=== PATIENT | female | born 1955 | race Caucasian/White ===

== ENCOUNTER 2020-04-23 07:13 | Day surgery (SDC) | payer OTHER ==
--- OUTSIDE RECORDS SUMMARY | 2020-04-23 07:21 | XMS REPORT | Clinical Summary ---
:1955 Author Organization [facility] Address [address] [place] [address] Care Team Providers Name Role Phone Chloe Snow MD Primary Care Provider Allergies Active Allergy Reactions Severity Noted Date Comments Hydroxychloroquine Itching 03/26/2020 Data migr ated from [facility] o n 12/18/14. Origina lly documented as PLAQUENIL. Data migrated f rom [employer] o n 12/18/14. Origina lly documented as PLAQUENIL. Sulfa (Sulfonamide Itching, Other 07/19/2018 Itching and pain Antibiotics) (See Comments) all over body Medications Medication Sig Dispensed Refills Start End Date Status Date cycloSPORINE Administer 1 0 Acti ve (RESTASIS) 0.05 % drop to both ophthalmic emulsion eyes 2 (two) times a day. calcium Take 1 tablet 0 Active carbonate-vitamin by mouth D3 500 mg-200 unit daily. per tablet ergocalciferol TAKE 1 CAPSULE 4 capsule 0 Active (VITAMIN D2) 50,000 BY MOUTH ONE 0 unit capsule TIME PER WEEK folic acid Take 1 mg by 0 Active (FOLVITE) 1 MG mouth 2 (two) tablet times a day. inFLIXimab in 6 mg/kg every 1 each 12 Ac tive sodium chloride 6 weeks 0 0.9% 250 mL IVPB cholecalciferol, Take 2,000 0 07/10/20 Di scontinued vitamin D3, Units by mouth 19 (Do se (VITAMIN D3) 2,000 daily. a djustment) unit capsule capsule inFLIXimab in Infuse into a 0 01/16/20 Di scontinued sodium chloride venous 20 (Reo rder) 0.9% 250 mL IVPB catheter Every 2 months. DOXYCYCLINE CALCIUM Take 20 mg by 0 Discontinued ORAL mouth 2 (two) 20 (Dupli rukhsana times a day. order) folic acid Take 2 tablets 180 tablet 3 09/24/19 Exp ired (FOLVITE) 1 MG (2 mg total) 9 20 tablet by mouth daily. leflunomide (ARAVA) Take 1 tablet 30 tablet 0 Discontinued 20 MG tablet (20 mg total) 05 08 (Re order) by mouth daily. amoxicillin TAKE ONE 0 07/11/20 Disconti nued (AMOXIL) 500 MG CAPSULE BY 05 08 (Di scontinued by capsule MOUTH 3 TIMES anothe r A DAY FOR 7 clinicia n) DAYS leflunomide (ARAVA) TAKE 1 TABLET 30 tablet 1 Discontinued 20 MG tablet BY MOUTH EVERY 9 (R eorder) DAY traMADol (ULTRAM) Take 50 mg by 0 08/22/19 Discontinued 50 mg tablet mouth 2 (two) 9 20 (Me d List times a day as Clean up) needed. leflunomide (ARAVA) TAKE 1 TABLET 90 tablet 0 Discontinued 20 MG tablet BY MOUTH EVERY 9 20 (R eorder) DAY ergocalciferol Take 1 capsule 8 capsule 0 09/08/19 Discontinued (VITAMIN D2) 50,000 (50,000 Units 9 20 unit capsule total) by mouth once a week. doxycycline Take 20 mg by 0 12/25/19 Disc ontinued (PERIOSTAT) 20 MG mouth 2 (two) 9 20 (Therapy tablet times a day. complet ed) leflunomide (ARAVA) Take 1 tablet 90 tablet 1 Discontinued 20 MG tablet (20 mg total) 0 20 by mouth daily. leflunomide (ARAVA) 0 02/05/20 Discontinued 20 MG tablet 0 20 (Duplic ate order) leflunomide (ARAVA) TAKE 1 TABLET 90 tablet 1 Discontinued 20 MG tablet BY MOUTH EVERY 0 20 (S daljit effects) DAY Active Problems Problem Noted Date Long-term use of high-risk medication 01/16/2018 High risk medications (not anticoagulants) long-term u se 03/10/2016 Vitamin D deficiency 03/10/2016 Osteoporosis 03/10/2016 Rheumatoid arthritis 03/01/2016 Overview: Dx 1989 Arthritis Visual impairment Muscle weakness Encounters Date Type Specialty Care Team Description 04/15/2020 Telemedicine Rheumatology JenifferaAprilifa, Rheumatoid a rthritis involving multiple sites with positive rheumatoid factor (HCC) (Primary Dx); DO Long-term use o f high-risk medication; Medication maricruz toring encounter; Other osteoporo sis without current pathological fracture; Cough; Weight loss 04/15/2020 Travel 04/13/2020 Refill Rheumatology Tye Hill, DO 03/26/2020 Infusion Rheumatology Fakshaynea, Latifa, Rheumatoid a rthritis DO involving multi ple sites with positive r heumatoid factor (HCC) (P rimary Dx) 03/26/2020 Travel 03/25/2020 Travel 03/24/2020 Orders Only Rheumatology Jeniffera, Latifa, DO 02/05/2020 Infusion Rheumatology Fakshaynea, Latifa, Rheumatoid a rthritis DO involving multi ple sites with positive r heumatoid factor (HCC) (P rimary Dx) 02/05/2020 Travel 02/05/2020 Orders Only Pharmacy Tye Hill, DO 02/03/2020 Travel 01/16/2020 Office Visit Rheumatology Jeniffera Latifa, Rheumatoid a rthritis involving multiple sites with positive rheumatoid factor (HCC) (Primary Dx); DO Long-term use o f high-risk medication; Medication maricruz toring encounter; Other osteoporo sis without current pathological fracture 01/16/2020 Travel 12/31/2019 Travel 12/29/2019 Hospital Encounter Radiology Tye Hill Long-t erm use of high- risk medication; DO Positive Quanti FERON-TB Gold test 12/29/2019 Travel 12/25/2019 Infusion Rheumatology Fakshaynea, Latifa, Rheumatoid a rthritis DO involving multi ple sites with positive r heumatoid factor (HCC) (P rimary Dx) 12/25/2019 Telephone Rheumatology Corinna Lopez MA 12/25/2019 Orders Only Rheumatology Corinna Lopez MA Rheumatoid a rthritis involving multiple sites with positive rheumatoid factor (HCC) (Primary Dx); Long-term use o f high-risk medication 12/25/2019 Orders Only Rheumatology FakApril pearceifa, Long-term us e of high-risk medication (Primary Dx); DO Positive Quanti FERON-TB Gold test 12/25/2019 Travel 12/25/2019 Orders Only Pharmacy Fakoya, Latifa, DO 12/24/2019 Orders Only Rheumatology Fakshaynea, Latifa, DO 12/24/2019 Orders Only Rheumatology Pereira, Rheumatoid arth ritis involving multiple sites with positive rheumatoid factor (HCC) (Primary Dx); IKER Adan Long-term use o f high-risk medication; Seropositive rh eumatoid arthritis of multiple sites (HCC) 11/14/2019 Infusion Rheumatology Fakoya, Latifa, Rheumatoid a rthritis DO involving multi ple sites with positive r heumatoid factor (HCC) (P rimary Dx) 11/14/2019 Travel 11/11/2019 Orders Only Rheumatology Fakoya, Latifa, DO 10/09/2019 Office Visit Rheumatology Fakoya, Latifa, Rheumatoid a rthritis involving multiple sites with positive rheumatoid factor (HCC) (Primary Dx); DO Long-term use o f high-risk medication; Medication maricruz toring encounter; Essential hyper tension; Other osteoporo sis without current pathological fracture 10/07/2019 Refill Rheumatology Fakoya, Latifa, DO 10/03/2019 Infusion Rheumatology Fakoya, Latifa, Rheumatoid a rthritis DO involving multi ple sites with positive r heumatoid factor (HCC) (P rimary Dx) 09/07/2019 Refill Rheumatology Fakoya, Latifa, DO 08/22/2019 Infusion Rheumatology Fakoya, Latifa, Rheumatoid a rthritis DO involving multi ple sites with positive r heumatoid factor (HCC) (P rimary Dx) 08/19/2019 Orders Only Rheumatology Fakoya, Latifa, DO 07/11/2019 Infusion Rheumatology Fakoya, Latifa, Rheumatoid a rthritis DO involving multi ple sites with positive r heumatoid factor (HCC) (P rimary Dx) 07/11/2019 Orders Only Rheumatology Fakoya, Latifa, DO 07/11/2019 Orders Only Rheumatology Fakshaynea, Latifa, DO 07/10/2019 Orders Only Rheumatology Fakshaynea, Latifa, DO 07/09/2019 Office Visit Rheumatology Fakshaynea Latifa, Rheumatoid a rthritis involving multiple sites with positive rheumatoid factor (HCC) (Primary Dx); DO Essential hyper tension; Other osteoporo sis without current pathological fracture; Long-term use o f high-risk medication; Medication maricruz toring encounter 07/09/2019 Refill Rheumatology Fakoya, Latifa, DO 05/30/2019 Infusion Rheumatology Fakshaynea, Latifa, Rheumatoid a rthritis DO involving multi ple sites with positive r heumatoid factor (HCC) (P rimary Dx) 05/30/2019 Orders Only Rheumatology Fakshaynea, Latifa, DO 05/06/2019 Refill Rheumatology FakshayneaAprilifa, DO after 04/23/2019 Immunizations Name Administration Dates Next Due PPD Test 05/09/2015 Family History Medical History Relation Name Comments Cancer Brother Hyperlipidemia Brother Hypertension Brother Relation Name Status Comments Brother Father (Age 71) heart attack Mother 40s car accident Social History Tobacco Use Types Packs/Day Years Used Date Never Smoker Smokeless Tobacco: Never Used Alcohol Use Drinks/Week oz/Week Comments No not found Sex Assigned at Date Recorded Not on file Job Start Date Occupation Industry Not on file Not on file Not on file Travel History Travel Start Travel End No recent travel history available. COVID-19 Exposure Response Date Recorded In the last month, have you been in contact with No / Unsure 04/15/2020 12:41 PM CDT someone who was confirmed or suspected to have Coronavirus / COVID-19? Last Filed Vital Signs Vital Sign Reading Time Taken Comments Blood Pressure 96/53 03/26/2020 12:04 PM CDT Pulse 90 03/26/2020 12:04 PM CDT Temperature 36.1 C (96.9 F) 03/26/2020 12:04 PM CDT Respiratory Rate 16 03/26/2020 12:04 PM CDT Oxygen Saturation 95% 03/26/2020 12:04 PM CDT Inhaled Oxygen Concentration - - Weight 44.9 kg (99 lb) 03/26/2020 9:30 AM CDT Height 147.3 cm (4' 10") 03/26/2020 9:30 AM CDT Body Mass Index 20.69 03/26/2020 9:30 AM CDT Plan of Treatment Date Type Specialty Care Team Description 05/07/2020 Infusion [place] Tye Hill DO [id number] [place] [address] [place] [address] [phone] 05/24/2020 [place] [address] [phone] Health Maintenance Due Date Last Done Comments CERVICAL CANCER SCREENING 1975 BREAST CANCER SCREENING 2004 COLONOSCOPY SCREENING 2004 SHINGLES VACCINES (#1) 2004 65+ PNEUMOCOCCAL VACCINE (2 of 2 - PPSV23) 10/01/201909/21 INFLUENZA VACCINE 05/20/2020 Procedures Procedure Name Priority Date/Time Associated Diagnosis Comme nts XR CHEST 2 VW Routine 12/29/2019 11:38 Long-term use of Result s for this AM CDT high-risk medica tion procedure are in Positive the results QuantiFERON-TB Gold section. test QUANTIFERON-TB GOLD Routine 12/25/2019 1:47 Resu lts for this PLUS PM CDT procedure are i n the results section. QUANTIFERON-TB GOLD Routine 12/25/2019 1:47 Rheumatoid arth ritis Results for this PLUS PM CDT involving multiple procedure are in sites with positive the resu lts rheumatoid factor section. (HCC) Long-term use of high-risk medica tion Seropositive rheumatoid arthritis of multiple sites (HCC) HEPATITIS B SURFACE Routine 12/25/2019 1:41 Long-term use of Results for this ANTIGEN PM CDT high-risk medication procedu re are in the results section. HEPATITIS B SURFACE Routine 12/25/2019 1:41 Long-term use of Results for this ANTIBODY PM CDT high-risk medication procedu re are in the results section. HEPATITIS C ANTIBODY Routine 12/25/2019 1:41 Long-term use of Results for this PM CDT high-risk medication procedu re are in the results section. HEPATITIS B CORE Routine 12/25/2019 1:41 Long-term use of Res ults for this ANTIBODY TOTAL PM CDT high-risk medication proce dure are in the results section. 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 ([facility]) SEDIMENTATION RATE Routine 10/09/2019 2:58 Rheumatoid arthrit is Results for this PM COMMUNICATIONS TOWER CLIMBER involving multiple procedure are in sites with positive the resu lts rheumatoid factor section. ([facility]) COMPREHENSIVE Routine 10/09/2019 2:58 Rheumatoid arthritis Re sults for this METABOLIC PANEL PM [employer]OWER [employer]IM[employer] involving multiple proced ure are in sites with positive the resu lts rheumatoid factor section. ([facility]) Medication monitoring encounter CBC WITH PLATELET AND Routine 10/09/2019 2:58 Rheumatoid arth ritis Results for this DIFFERENTIAL PM COMM[employer]ICATION[employer] TOWER [employer]IMBER involving multiple procedure are in sites with positive the resu lts rheumatoid factor section. (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 ([facility]) SEDIMENTATION RATE Routine 07/09/2019 2:41 Rheumatoid arthrit is Results for this PM COMMUNICATIONS TOWER CLIMBER involving multiple procedure are in sites with positive the resu lts rheumatoid factor section. ([facility]) COMPREHENSIVE Routine 07/09/2019 2:41 Rheumatoid arthritis Re sults for this METABOLIC PANEL PM [employer]S TOWER [employer]IMBER involving multiple proced ure are in sites with positive the resu lts rheumatoid factor section. ([facility]) CBC WITH PLATELET AND Routine 07/09/2019 2:41 Rheumatoid arth ritis Results for this DIFFERENTIAL PM COMM[employer]ICATIONS TOWER [employer]IMBER involving multiple procedure are in sites with positive the resu lts rheumatoid factor section. ([facility]) VITAMIN D 25 HYDROXY Routine 07/09/2019 2:41 Rheumatoid arthr itis Results for this LEVEL PM [employer]ICATION[employer] TOWER [employer]IMBER involving multiple procedure are in sites with positive the resu lts rheumatoid factor section. ([facility]) Other osteoporosis without current pathological fracture after 04/23/2019 Results XR Chest 2 Vw (12/29/2019 11:38 AM CDT) Specimen Narrative Performed At XR CHEST 2 VW [facility] CLINICAL INDICATION: Z79.899 Other longterm (curren t) drug therapy, R76.12 Nonspecific reaction to cell mediated immunity measurement of gamma interferon antigen response without active tuber culosis, Positive TB-screening COMPARISON: 03/07/2019 IMPRESSION: Heart and mediastinal contours are within normal limit s and without change. The lungs are stable with mild chronic interstitial ch anges and mild hyperexpansion, question COPD. There is no developing consolidation or effusion. There are no radiographic findings for a ctive tuberculosis. Bones are demineralized with mild degenerative changes through the spine with advanced arthrosis of the shoulders. Osteolysis o f the distal clavicles is present which may relate to systemic dise ase such as from hyperparathyroidism or rheumatoid arthritis. *[facility]-[id number] Procedure Note Hm Interface, Radiology Results Incoming - 12/29/2019 11:44 AM CDT XR CHEST 2 VW CLINICAL INDICATION: Z79.899 Other manager terminal (current) drug therapy, R76.12 Nonspecific reaction to cell mediated immunity measurement of gamma interferon antigen response without active tuberculosis, Positive TB-screening COMPARISON: 03/07/2019 IMPRESSION: Heart and mediastinal contours are withi n normal limits and without change. The lungs are stable with mild chronic i nterstitial changes and mild hyperexpansion, question COPD. There is no developing consolidation or effusion. There are no radiographic findings for a ctive tuberculosis. Bones are demineralized with mild degene rative changes through the spine with advanced arthrosis of the shoulders. Osteolysis of the distal clavicles is present which may relate to systemic disease such as from hyperparathyroidism or rheumatoid arthritis. *[facility]-[id number] Performing Organization Address City/State/Zipcode Phone Number [place] [phone] [place] [address] QuantiFERON-TB Gold Plus (12/25/2019 1:47 PM CDT) Quantiferon criteria Comment [facility] 02 Comment: The QuantiFERON-TB Gold Plus result is determined by s ubtracting the Nil value from either TB antigen (Ag) tube. The mi togen tube serves as a control for the test. QuantiFERON TB1 Ag >10.00 IU/mL [facility] 02 Value QuantiFERON TB2 Ag >10.00 IU/mL [facility] 02 Value Quantiferon NIL value 6.09 IU/mL [facility] 02 Quantiferon mitogen >10.00 IU/mL [facility] 02 value Specimen Narrative Performed At Performed at: 02 - [facility] [place] [facility] [address] [id number] Lining Maker: Joe Plaza MD, Phone: [phone] Performing Organization Address [facility] Phone Number [facility] 02 QuantiFERON-TB Gold Plus (12/25/2019 1:47 PM CDT) Pathologist Sig nature QuantiFERON Incubation [facility] Incubation performed. Quantiferon TB gold Positive (A) Negative [facility] 02 plus Specimen Narrative Performed At Performed at: [facility] [address] [place] [address] [id number] Lining Maker: Jonn Bernardo MD, Phone: [phone] Performed at: [facility] [place] [address] [id number] Lining Maker: Joe Plaza MD, Phone: [phone] Performing Organization Address [facility] Phone Number [facility] 02 Hepatitis C antibody (12/25/2019 1:41 PM CDT) Hepatitis C Ab 0.1 0.0 - 0.9 s/co [facility] Comment: ratio Neg ative: < 0.8 Indetermina te: 0.8 - 0.9 Pos itive: > 0.9 The CDC recommends that a positive HCV antibody resul t be followed up with a HCV Nucleic Acid Amplification test (176880). Specimen Blood Narrative Performed At Performed at: [facility] [address] [place] [address] [id number] Lining Maker: Jonn Bernardo MD, Phone: [phone] Performing Organization Address [facility] Phone Number [facility] Hepatitis B core antibody total (12/25/2019 1:41 PM CDT) Pathologist Sig replaced by [facility] Hepatitis B core total Ab Negative Negative [facility] Specimen Blood Narrative Performed At Performed at: [facility] [address] [place] [address] [id number] Lining Maker: Jonn Bernardo MD, Phone: [phone] Performing Organization Address [facility] Phone Number [facility] Hepatitis B surface antibody (12/25/2019 1:41 PM CDT) Pathologist Sig nature Hepatitis B surface Non Reactive [facility] Ab Comment: Non Reactive: Inconsistent with i mmunity, less than 10 mIU/mL Reactive: Consistent with i mmunity, greater than 9.9 mIU/mL Specimen Blood Narrative Performed At Performed at: [address] [place] [address] [facility] [address] [place] [address] [id number] Lining Maker: Jonn Bernardo MD, Phone: [phone] Performing Organization Address [facility] Phone Number [facility] Hepatitis B surface antigen (12/25/2019 1:41 PM CDT) Pathologist [facility] Hepatitis B surface Ag Negative Negative [facility] Specimen Blood Narrative Performed At [facility]formed [facility]: [facility] [address] [place] [address] [id number] [phone] Lining Maker: Jonn Bernardo MD, Phone: [phone] Performing Organization Address [facility] Phone Number [facility] Sedimentation rate (10/09/2019 2:58 PM COMMUNICATIONS TOWER CLIMBER)Only the most recent of2 results within the time period is included. Pathologist Sig replaced by [facility] Sedimentation rate 17 0 - 40 mm/hr [facility] Specimen Blood Narrative Performed At Performed at: [facility] [address] [place] [address] [id number] [phone] Lining Maker: Jonn Bernardo MD, Phone: [phone] Performing Organization Address [facility] Phone Number [facility] CBC with platelet and differential (10/09/2019 2:58 PM COMMUNICATIONS TOWER CLIMBER)Only the most recent of2 resultswithin the time period is included. Pathologist Sig replaced by [facility] WBC 4.5 3.4 - 10.8 x10E3/uL [facility] RBC 4.10 3.77 - 5.28 [facility] x10E6/uL HGB 11.6 11.1 - 15.9 g/dL [facility] HCT 38.0 34.0 - 46.6 % [facility] MCV 93 79 - 97 fL [facility] MCH 28.3 26.6 - 33.0 pg [facility] MCHC 30.5 (L) 31.5 - 35.7 g/dL [facility] RDW 14.9 11.7 - 15.4 % [facility] Platelet count 200 150 - 450 x10E3/uL [facility] Neutrophils 48 Not Estab. % [facility] Lymphocytes 35 Not Estab. % [facility] Monocytes 10 Not Estab. % [facility] Eosinophils 6 Not Estab. % [facility] Basophils 1 Not Estab. % [facility] Neutrophils, absolute 2.1 1.4 - 7.0 x10E3/uL [facility] Lymphocytes, absolute 1.6 0.7 - 3.1 x10E3/uL [facility] Monocytes, absolute 0.5 0.1 - 0.9 x10E3/uL [facility] Eosinophils, absolute 0.3 0.0 - 0.4 x10E3/uL [facility] Basophils, absolute 0.1 0.0 - 0.2 x10E3/uL [facility] Immature granulocytes 0 Not Estab. % [facility] Immature grans (abs) 0.0 0.0 - 0.1 x10E3/uL [facility] Specimen Blood Narrative Performed At Performed at: [address] [place] [address] [id number] Lining Maker: Jonn Bernardo MD, Phone: [phone] Performing Organization Address [facility] Phone Number [facility] C-reactive protein (10/09/2019 2:58 PM COMMUNICATIONS TOWER CLIMBER)Only the most recent of2 results within the time period is included. Pathologist Sig nature CRP 1 0 - 10 mg/L [facility] Specimen Blood Narrative Performed At Performed at: [address] [place] [address] [id number] [phone] Lining Maker: Jonn Bernardo MD, Phone: [phone] Performing Organization Address [facility] Phone Number [facility] Comprehensive metabolic panel (10/09/2019 2:58 PM COMMUNICATIONS TOWER CLIMBER)Only the most recent of2 resultswithin the time period is included. Glucose 91 65 - 99 mg/dL [facility] BUN 6 (L) 8 - 27 mg/dL [facility] Creatinine 0.40 (L) 0.57 - 1.00 [facility] mg/dL EGFR Non-Afr. 110 >59 [facility] Gambian mL/min/1.73 EGFR 126 >59 [facility] Gambian mL/min/1.73 BUN/creatinine ratio 15 12 - 28 [facility] Sodium 142 134 - 144 [facility] mmol/L Potassium 3.6 3.5 - 5.2 [facility] mmol/L Chloride 102 96 - 106 [facility] mmol/L CO2 22 20 - 29 mmol/L [facility] Calcium 8.9 8.7 - 10.3 [facility] mg/dL Protein 7.8 6.0 - 8.5 g/dL [facility] Albumin, S 4.5Comment: 3.8 - 4.8 g/dL [facility] Please note reference interval change Globulin, total 3.3 1.5 - 4.5 g/dL [facility] Albumin/globulin 1.4 1.2 - 2.2 [facility] ratio Total bilirubin 0.3 0.0 - 1.2 [facility] mg/dL Alkaline phosphatase 121 (H) 39 - 117 IU/L [facility] AST 33 0 - 40 IU/L [facility] ALT 35 (H) 0 - 32 IU/L [facility] Specimen Blood Narrative Performed At Performed at: 01 - [facility] [place] [facility] [address] [place], [place] [id number] [phone] Lining Maker: Jonn Bernardo MD, Phone: [phone] Performing Organization Address City/[facility] Phone Number [facility] Vitamin D 25 hydroxy level (07/09/2019 2:41 PM COMMUNICATIONS TOWER CLIMBER) Vitamin D, 13.2 (L) 30.0 - 100.0 [facility] 25-hydroxy Comment: ng/mL Vitamin D deficiency has been defined by the [place] of Medicine and an Endocrine Society practice guideline a s a level of serum 25-OH vitamin D less than 20 ng/mL (1,2 ). The Endocrine Society went on to further define vitami n D insufficiency as a level between 21 and 29 ng/mL (2). 1. IOM ([place] of Medicine). 2010. Dietary referenc e intakes for calcium and D. [place]: The National Academies Press. 2. Alcon MF, Florinda NC, Phong-Wicho PENALOZA, et al. Evaluation, treatment, and prevention of vitamin D deficiency: an Endocrine Society clinical practice guideline. JCEM. 2010; 96(7):1911-30. 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
--- OUTSIDE RECORDS SUMMARY | 2020-04-23 07:23 | XMS REPORT | Summary of Care ---
:1955 Author Organization [facility] Address [address] [place] [phone]- Care Team Providers Name Role Phone Eduardo Sauer Primary Care Physician Encounter HQ Jose(YULISA) [phone] Date(s): 03/11/20 - 03/12/20 [facility] [address] [place] [address]- [phone] Vital Signs No data available for this section Problem List Condition Effective Dates Status Health Status Informant Acute maxillary sinusitis1, 2 07/20/14 Resolved Allergic rhinitis3 03/19/15 Resolved Cough4 11/23/14 Resolved Dry skin5 03/19/12 Resolved Dyssomnia6 04/09/12 Resolved Elevated levels of transaminase & 01/08/13 Active lactic acid dehydrogenase7 Hip pain8 03/19/12 Resolved Influenza9 Resolved Influenza dldbmfbpaic14 Resolved Joint effusion of ankle AND/OR 08/06/14 Resolved foot11 Long-term drug [id number] 08/07/12 Resolved Lung mass13, 14 11/26/14 Resolved Neck pain15 06/05/14 Active RA (rheumatoid arthritis)(Confirmed) Active Tinea pedis16, 17 11/05/13 Resolved Upper respiratory pysiillrz51, 19, 12/15/13 Resolved 20, 21 1Data migrated from [employer] on 03/06/15.2Data migrated from [employer] on 03/05/15.3Data migrated from [employer] on 04/10/15.4Data migrated from [employer] on 02/24/15.5Data migrated from [employer] on 01/16/15.6Data migrated from [employer] on 01/16/15.7Data migrated from [employer] on 01/16/15.8Data migrated from [employer] on 01/16/15.9Data migrated from [employer] on 03/05/15.10Data migrated from [employer] on 03/05/15.11Data migrated from [employer] on 01/16/15.12Data migrated from [employer] on 01/16/15.13Data migrated from [employer] on 04/10/15.14Data migrated from [employer] on 02/24/15.15Data migrated from [employer] on 01/16/15.16Data migrated from [employer] on 03/06/15.17Data migrated from [employer] on 03/05/15.18Data migrated from [employer] on 03/06/15.19Data migrated from [employer] on 03/06/15.20Data migrated from [employer] on 03/05/15.21Data migrated from [employer] on 03/05/15. Allergies, Adverse Reactions, Alerts Substance Reaction Severity Status sulfa drugs1 Active hydroxychloroquine2 Active 1Data migrated from [employer] on 03/18/15. Originally documented as SULFA.2 Data migrated from [employer] on 12/18/14. Originally documented as PLAQUENIL. Medications No data available for this section Results No data available for this section Immunizations Given and Recorded Vaccine Date Status Refusal Reason pneumococcal 13-valent vaccine1 09/21/16 Given Hx influenza vaccine-unspecified2 06/05/14 Given influenza virus vaccine, inactivated3 08/06/13 Given tetanus-diphtheria toxoids4 12/16/10 Given pneumococcal 23-valent vaccine5 12/07/08 Given 1Result Comment: [facility]: [id number] No adverse reactions noted.2Result Comment: fluzone (quadrivalent) no preservative (>3 yrs.) [[id number]]. Migrated from OBS ; Data migrated from [employer] on 09/21/2015.3Result Comment: fluzone preservative free (>3 yrs.) [[id number]]. Migrated from OBS ; Data migratedfrom [employer] on 09/21/2015.4Result Comment: td. Migrated from OBS ; Data migrated from [employer] on 09/21/2015.5Result Comment: pneumovax. Migrated from OBS ; Data migrated from [employer] on 09/21/2015. Procedures Procedure Date Related Diagnosis Body Site Status ORIF - Open reduction and internal 08/20/11 Completed fixation of fracture1 Excision of lipoma of subcutaneous 2010 Completed tissue Colonoscopy 08/20/07 Completed Esophagoduodenostomy 08/20/07 Complet ed Knee replacement2 08/20/06 Completed Hip replacement3 08/20/04 Completed MCPJ - Arthroplasty metacarpophalangeal 1999 Completed joint of finger 1Left [id number] Social History Social History Type Response Smoking Status Never smoker; Exposure to To bacco Smoke None; Cigarette Smoking Last 365 Days No; Reg Smoking Cessation Counseling No entered on: 03/11/20 Assessment and Plan No data available for this section
--- OUTSIDE RECORDS SUMMARY | 2020-04-23 07:23 | XMS REPORT | Continuity of Care Document ---
:1955 Author Organization [email or web address] Care Team Providers Name Role Phone [email or web address] Unavailable Un available Problems Problem Status Onset Classification Date Comments Sourc e Date Reported Allergic 03/12/20 03/13/2020 rhinitis, 20 Medical unspecified Group L04.0 - "ACUTE Active 08/18/20 OP ID LYMPHADENITIS OF 15 Sug ar FACE, H" Land Discharge 03/30/20 04/02/2015 [place] Diagnosis: 15 Land Myalgia Discharge 03/30/20 04/02/2015 [place] Diagnosis: Hx of 15 Rylan [place] rheumatoid arthritis BODY PAIN Active 03/30/20 [place] 15 [place] Allergic rhinitis Resolved 03/19/20 Problem 03/14/2020 Data M H (disorder) 15 migrated Medical from [employer], [facility] OPID on 04/10/15. [place] Lung mass Resolved 11/27/19 Problem 03/14/2020 Data migrated from [employer] [facility] on 04/10/15. MH (finding) 15 Data migrated from E [facility]ricity on 02/24/15. Medical Group, OPID [place] LUNG NODULE Active 11/27/19 Condition 03/19/2015 15 Medical Group Cough (finding) Resolved 11/24/19 Problem 03/14/2020 Data 15 migrated Medical from [employer], [employer] OPID on 02/24/15. [place] Dyspnea (finding) Active 11/24/19 Problem 04/02/2015 Data M H [place] 15 migrated Land from [employer] on 02/24/15. Pneumonia Active 11/24/19 Problem 04/02/2015 Data [place] (disorder) 15 migrated Land from [employer] [facility] on 02/24/15. SYMPTOM, COUGH Active 11/24/19 Condition 03/19/2015 15 Medical Group SHORTNESS OF Active 11/24/19 Condition 03/19/2015 BREATH 15 Medical Group PNEUMONIA Active 11/24/19 Condition 03/19/2015 15 Medical Group Fever (finding) Active 10/05/19 Problem 04/02/2015 Data [place] 15 migrated Land from [employer] on 02/24/15. FEVER Active 10/05/19 Condition 03/19/2015 15 Medical Group OTITIS MEDIA, Inactive 10/05/19 Condition 03/19/2015 LEFT 15 Medical Group Effusion of joint Resolved 08/06/20 Problem 03/14/2020 Data M H of ankle AND/OR 14 migrated Medi [place]ens foot (disorder) from Grou [facility], [facility]ity OPID on 01/16/15. [place] JOINT EFFUSION, Active 08/06/20 Condition 03/19/2015 ANKLE 14 Medical Group CONTUSION, RIGHT Inactive 08/06/20 Condition 03/19/2015 KNEE 14 Medical Group CONTUSION, THUMB Inactive 08/06/20 Condition 03/19/2015 14 Medical Group Acute maxillary Resolved 07/20/20 Problem 03/14/2020 Data migr ated from [employer] on 03/06/15. sinusitis 14 [facility] [employer] [facility]15. Medical (disorder) Group, OPID [place] SINUSITIS, ACUTE Inactive 07/20/20 Condition 03/19/2015 MAXILLARY 14 Medical Group Neck pain Active 06/05/20 Problem 03/14/2020 Data (finding) 14 migrated Medical from [facility], [facility] OPID on 01/16/15. 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 infection 14 Data migrated from G [facility] on 03/06/15. Medical (disorder) Data migrated from [employer] on 03/05/15. Group, Data migrated from E [facility]ity on 03/05/15. OPID [place] ALLERGIC Inactive 12/16/19 Condition 03/19/2015 CONJUNCTIVITIS 14 Medic al Group ALLERGIC RHINITIS Inactive 12/16/19 Condition 03/19/2015 M H 14 Medical Group URI Inactive 12/16/19 Condition 03/19/2015 14 Medical Group Tinea pedis Resolved 11/06/19 Problem 03/14/2020 Data migrated from [facility] on 03/06/15. MH (disorder) 14 Data migrated from [employer] on 03/05/15. Medical Group, OPID [place] TINEA PEDIS Inactive 11/06/19 Condition 03/19/2015 14 Medical Group NEED PROPHYLACTIC Inactive 08/06/20 Condition 03/19/2015 M H VACCINATION&INOCU 13 Me dical LATION FLU Group Elevated levels Active 01/09/20 Problem 03/14/2020 Data of transaminase & 13 migrated Nm dical lactic acid from [facility], dehydrogenase Centricity OPID (finding) on 01/16/15. [place] TRANSAMINASES, Active 01/09/20 Condition 03/19/2015 SERUM, ELEVATED 13 Medi rubens Group EFFUSION OF UPPER Inactive 01/09/20 Condition 03/19/2015 M H ARM JOINT 13 Medical Group Long-term drug Resolved 08/07/20 Problem 03/14/2020 Data therapy 12 migrated Medical (procedure) from [facility], [facility] OPID on 01/16/15. [place] PRESSURE ULCER Inactive 08/07/20 Condition 03/19/2015 OTHER SITE 12 Medical Group LONG-TERM Active 08/07/20 Condition 03/19/2015 (CURRENT) USE OF 12 Med ical OTHER MEDICATIONS Gr oup Dyssomnia Resolved 04/09/20 Problem 03/14/2020 Data (disorder) 12 migrated Medical from [facility], [facility] OPID on 01/16/15. [place] SLEEP DISTURBANCE Active 04/09/20 Condition 03/19/2015 M H 12 Medical Group Dry skin Resolved 03/19/20 Problem 03/14/2020 Data (finding) 12 migrated Medical from [facility], [facility] OPID on 01/16/15. [place] Hip pain Resolved 03/19/20 Problem 03/14/2020 Data (finding) 12 migrated Medical from [facility] Cent[facility] OPID on 01/16/15. 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 [place] Rheumatoid Active Problem 03/14/2020 arthritis Medical (disorder) Group, OPID [place] RHEUMATOID Active Condition 03/19/2015 ARTHRITIS Medical Group Medications Medication Details Route Status Patient Ordering Order Source Instructions Provider Date doxycycline 100 mg = 1 Active hyclate 100 MG tab, PO, 2020 Medical Oral Tablet Q12H, X 5 Group day, # 10 tab, 0 Refill(s), Pharmacy: [facility]/pharmacy #[id number], 144.78, cm, 02/19/20 16:17:00 CDT, Height, 51.818, kg, 02/19/20 16:17:00 CDT, Weight Brompheniramine 5 mL, PO, Active Maleate 0.4 MG/ML TID, PRN 2019 Medic al / Dextromethorphan cough, X 8 Gr oup Hydrobromide 2 day, # 120 MG/ML / mL, 0 Pseudoephedrine Refill(s), Hydrochloride 6 Pharmacy: MG/ML Oral [facility]/pharmacy Solution [Bromfed #[id number], DM] 144.78, cm, 02/19/20 16:17:00 CDT, Height, 51.818, kg, 02/19/20 16:17:00 CDT, Weight Azithromycin 5 Day See Active Dose Pack 250 mg Instructions 2019 Me dical oral tablet , Take 2 Group tablets by mouth the first day then 1 tablet by mouth days 2-5., X 5 day, # 6 tab, 0 Refill(s), Pharmacy: [facility]/pharmacy #[id number], 144.78, cm, 02/19/20 16:17:00 CDT, Height, 51.818, kg, 02/19/20 16:17:00 CDT, Weight benzonatate 200 MG 200 mg = 1 Active Oral Capsule cap, PO, 2019 Medical [Tessalon] TID, X 10 Group day, # 30 cap, 0 Refill(s), Pharmacy: [facility]/pharmacy #[id number], 144.78, cm, 02/19/20 16:17:00 CDT, Height, 51.818, kg, 02/19/20 16:17:00 CDT, Weight tramadol 50 mg = 1 Active hydrochloride 50 tab, PO, 2018 Medica l MG Oral Tablet BID, X 15 Group day, # 20 tab, 0 Refill(s) doxycycline 100 mg = 1 Active hyclate 100 MG tab, PO, 2019 Medical Oral Tablet Q12H, X 10 Group day, # 20 tab, 0 Refill(s), Pharmacy: [facility]/pharmacy #[id number] amoxicillin 500 mg 500 mg = 1 Active oral capsule cap, PO, 2018 Medical TID, 0 Group Refill(s) infliximab 10 IV, 0 Active MG/ML Injectable Refill(s) 2019 Medic al Solution Group [Remicade] Doxycycline 20 MG 20 mg = 1 Inactive Oral Tablet tab, PO, 2019 Medical Daily, # 10 Group tab, 0 Refill(s) diclofenac sodium 75 mg = 1 Active 75 mg oral enteric tab, PO, 2017 Medi [place] coated, BID, PRN Group delayed-release Pain, # 30 tablet tab, 2 Refill(s), Pharmacy: [facility]/pharmacy #[id number] diclofenac sodium 75 mg = 1 Active 75 mg oral enteric tab, PO, 2017 Medi [place] coated, BID, PRN Group delayed-release Pain, # 30 tablet tab, 0 Refill(s), Pharmacy: [facility]/pharmacy #[id number] amLODIPine 2.5 mg 2.5 mg = 1 Active oral tablet tab, PO, 2017 Medical Daily, # 30 Group tab, 1 Refill(s), Pharmacy: [facility]/pharmacy #[id number] Vitamin D3 2000 2,000 Active intl units oral IntlUnit = 1 2018 Med ical tablet tab, PO, Group Daily, 0 Refill(s) diclofenac sodium 75 mg = 1 Active 75 mg oral enteric tab, PO, 2018 Medi [place] coated, BID, PRN Group delayed-release Pain, # 30 tablet tab, 0 Refill(s), Pharmacy: [facility]/pharmacy #[id number] leflunomide 10 mg 10 mg = 1 Active oral tablet tab, PO, 2018 Medical Daily, 0 Group Refill(s) Ventolin HFA 90 2 puff, Active mcg/inh inhalation INHALER, 2018 Medi [place] aerosol with Q4H, PRN Group adapter wheezing, coughing, or shortness of breath, # 18 gm, 1 Refill(s), Pharmacy: [facility]/pharmacy #[id number] Levofloxacin 500 500 mg = 1 No Longer MG Oral Tablet tab, PO, Active 2018 Medical [Levaquin] Q24H, X 10 Group day, # 10 tab, 0 Refill(s), Pharmacy: [facility]/pharmacy #[id number] doxycycline 100 mg = 1 Active hyclate 100 MG tab, PO, 2017 Medical Oral Tablet Q12H, X 7 Group day, # 14 tab, 0 Refill(s), Pharmacy: [facility]/pharmacy #[id number] benzonatate 200 MG 200 mg = 1 Active Oral Capsule cap, PO, 2017 Medical [Tessalon] TID, X 10 Group day, # 30 cap, 0 Refill(s), Pharmacy: [facility]/pharmacy #[id number] Acetaminophen 300 1 - 2 tab, Active Sugar MG / Codeine PO, Q4H, PRN 2014 [place] Phosphate 30 MG Pain, # 20 Oral Tablet tab, 0 [Tylenol with Refill(s) Codeine #3] Morphine Notes: (Same Inactive Sugar as:MORPhine 2014 [place] Sulfate) Sodium Chloride 500 mL, 500 Inactive [place] 0.154 MEQ/ML ml/hr, 2014 [place] Injectable Infuse Over: Solution 1 hr, Route: IV, 500, Drug form: INJ, ONCE, Priority: STAT, Dosing Weight 53.182 kg, Start date: 03/30/15 12:54:00, Duration: 1 doses or times, Stop date: 03/30/15 12:54:00 Ondansetron Notes: (Same Inactive Sug ar as: Zochristophe) 2014 [place] MEDICATION WASTE Product Size: 4 mg Product Wasted: ___ mg Morphine Notes: (Same Inactive [place] as:[facility]OR[facility]ine 2015 [place] Sulfate) AMOXICILLIN-POT 1 tablet PO Active CLAVULANATE BID for 10 2014 Medical 500-125 MG TABS days Group PREDNISONE 5 MG 1 tablet No Longer TABS daily Active 2014 Medical Group PREDNISONE 5 MG 1 tablet Active TABS daily 2014 Medical Group LEVOFLOXACIN 500 1 daily No Longer MG TABS Active 2014 Medical Group AMOXICILLIN 500 MG 1 tablet PO No Longer CAPS BID for 7 Active 2014 Medical days Group AMOXICILLIN 500 MG 1 tablet PO No Longer CAPS BID for 7 Active 2014 Medical days Group AUGMENTIN 500-125 1 tablet 2 No Longer 12/01/ M H MG TABS times a day Active 2013 Medical for 10 days Group MONTELUKAST SODIUM 1 tablet at Active 12/01/ M H 10 MG TABS night for 2013 Medical congestion Group MONTELUKAST SODIUM 1 tablet at Active 12/01/ M H 10 MG TABS night for 2013 Medical congestion Group MONTELUKAST SODIUM 1 tablet at Active 12/01/ M H 10 MG TABS night for 2013 Medical congestion Group MONTELUKAST SODIUM 1 tablet at Active 12/01/ M H 10 MG TABS night for 2013 Medical congestion Group MELOXICAM 7.5 MG 1 BY MOUTH Active TABS DAILY 2013 Medical Group MELOXICAM 7.5 MG 1 BY MOUTH Active TABS DAILY 2013 Medical Group MELOXICAM 7.5 MG 1 BY MOUTH Active TABS DAILY 2013 Medical Group PREDNISONE 10 MG 1 tablet No Longer 06/05/ TABS daily 7 days Active 2013 Medical then 1/2 tab Group daily PREDNISONE 10 MG 1 tablet No Longer 06/05/ TABS daily 7 days Active 2013 Medical then 1/2 tab Group daily PREDNISONE 10 MG 1 tablet No Longer TABS daily 7 days Active 2013 Medical then 1/2 tab Group daily NABUMETONE 500 MG 1 tablet Active TABS twice daily 2013 Medical Group NABUMETONE 500 MG 1 tablet Active TABS twice daily 2013 Medical Group NABUMETONE 500 MG 1 tablet Active TABS twice daily 2013 Medical Group NABUMETONE 500 MG 1 tablet Active TABS twice daily 2013 Medical Group ZITHROMAX TAB 2 tablets No Longer 250MG today, then Active 2013 Medical 1 tablet Group daily X 4 days ALAWAY 0.025 % 1 drop q12h Active SOLN prn 2013 Medical Group METHOTREXATE 2.5 6 po weekly Active MG TABS 2013 Medical Group METHOTREXATE 2.5 6 po weekly Active MG TABS 2013 Medical Group FOLIC ACID 1 MG 1 PO daily Active TABS 2013 Medical Group TERBINAFINE HCL 1 tablet No Longer 250 MG TABS daily Active 2013 Medical Group FOLIC ACID 1 MG 1 PO daily Active TABS 2013 Medical Group TERBINAFINE HCL 1 tablet No Longer 250 MG TABS daily Active 2013 Medical Group FOLIC ACID 1 MG 1 PO daily Active TABS 2014 Medical Group TERBINAFINE HCL 1 tablet No Longer 250 MG TABS daily Active 2014 Medical Group FOLIC ACID 1 MG 1 PO daily Active TABS 2013 Medical Group PREDNISONE 10 MG 3 tab PO QD No Longer 05/22/ M H TABS x 3 days, Active 2012 Medical then 2 tab Group PO QD x 3 days, then 1 tab PO QD PREDNISONE 10 MG 3 tab PO QD No Longer 05/22/ M H TABS x 3 days, Active 2012 Medical then 2 tab Group PO QD x 3 days, then 1 tab PO QD PREDNISONE 10 MG 3 tab PO QD No Longer 05/22/ M H TABS x 3 days, Active 2012 Medical then 2 tab Group PO QD x 3 days, then 1 tab PO QD PREDNISONE 10 MG 3 tab PO QD No Longer 05/22/ M H TABS x 3 days, Active 2012 Medical then 2 tab Group PO QD x 3 days, then 1 tab PO QD SILVASORB GEL apply daily No Longer to wound Active 2011 Medical Group DOXEPIN HCL 25 MG 1 PO q.hs No Longer 08/21/ MH CAPS Active 2011 Medical Group METHOTREXATE 2.5 4 tablets PO No Longer 04/09/ MH MG TABS weekly Active 2011 Medical Group METHOTREXATE 2.5 4 tablets PO No Longer 04/09/ MH MG TABS weekly Active 2011 Medical Group Allergies, Adverse Reactions, Alerts Substance Category Reaction Severity Reaction Status Date Comments S ource type Reported sulfa Assertion Drug Active Data drugs<sup>1 allergy migrated Med ical </sup> from [employer] on 03/18/15. Originally documented as SULFA. hydroxychlo Assertion Drug Active Data roquine<sup allergy migrated Med ical >2</sup> from [employer] on 12/18/14. Originally documented as PLAQUENIL. hydroxychlo Assertion Drug Active Data OPID roquine<sup allergy migrated Sug ar >1</sup> from [employer] [facility] [employer] on 12/18/14. Originally documented as PLAQUENIL. sulfa Assertion Drug Active Data OPI D drugs<sup>2 allergy migrated Sug ar </sup> from [employer] [facility] on 03/18/15. Originally documented as SULFA. PLAQUENIL Drug PLAQUENIL allergy Medical Group SULFA Drug SULFA allergy Medical Group Immunizations Immunization Date Site Status Last Comments Source Given Updated pneumococcal Right completed [place] Result Comment: [facility] 13-valent 7 Deltoid NDC: Group vaccine<sup>1</s up> No adverse reactions noted. influenza completed Medical immunization 4 Group (Flu Vax) has been administered Hx influenza Right completed GE Result Comment: [facility] Medical vaccine-unspecif 4 Deltoid fluzone Joseph up ied<sup>2</sup> (quadrivalent) no preservative (>3 yrs.) [[id number]]. Migrated from OBS ; Data migrated from [employer] on 09/21/2015. influenza completed Medical immunization 3 Group (Flu Vax) has been administered influenza virus completed GE Result Comment : Medical vaccine, 3 fluzone Group inactivated<sup> preservative 3</sup> free (>3 yrs.) [[id number]]. Migrated from OBS ; Data migrated from [employer] on 09/21/2015. dT (Diphtheria completed [facility] dical and Tetanus) 1 Group booster given dT (Diphtheria completed [facility] dical and Tetanus) 1 Group booster tetanus-diphther completed GE Result Commen t: Medical ia 1 td. Migrated Group toxoids<sup>4</s from OBS ; up> Data migrated from [employer] on 09/21/2015. dT (Diphtheria completed [facility] dical and Tetanus) 1 Group immunization for children, #1 pneumococcal completed GE Result Comment: M [facility] 23-valent 9 pneumovax. Group vaccine<sup>5</s Migrated from up> OBS ; Data migrated from [employer] on 09/21/2015. pneumococcal completed Medi rubens immunization 9 Group administered Results Order Name Results Value Reference Date Interpretation Comments Crista rce Range CHEM PANEL eGFR 99 03/30 Result Comment: [facility] eGFR is calculated using the CKD-EPI formula. In most young, healthy individuals the eGFR will be >90 mL/min/1.73m2 . The eGFR declines with age. An eGFR of 60-89 may be normal in some populations, particularly the elderly, for whom the CKD-EPI formula has not been extensively validated. Use of the eGFR is not recommended in the following populations:< br/>
Manisha viduals with unstable creatinine concentration s, including patients and those with serious co-morbid conditions.<b r/>
Patie nts with extremes in muscle mass or diet.

The data above are obtained from the National Kidney Disease Education Program (NKDEP) which additionally recommends that when the eGFR is used in patients with extremes of body mass index for purposes of drug dosing, the eGFR should be multiplied by the estimated BMI. CHEM PANEL Glucose Lvl 108 70 - 99 03/30 [place] CHEM PANEL BUN 8 7 - 22 03/30 [place] CHEM PANEL Creatinine 0.6 0.5 - 1.4 03/30 [place] Lvl [place] CHEM PANEL Sodium Lvl 137 135 - 145 03/30 [place] CHEM PANEL Potassium Lvl 3.1 3.5 - 5.1 03/30 [place] CHEM PANEL Chloride Lvl 103 95 - 109 03/30 [place] CHEM PANEL CO2 21 24 - 32 08 [place] CHEM PANEL Calcium Lvl 8.5 8.5 - 10.5 03/30 [place] CHEM PANEL AGAP 16.1 10.0 - 08 [place] 20.0 Land HEMATOLOGY MCHC 33.3 32.0 - 08 [place] 36.0 /2014 [place] HEMATOLOGY RDW 16.8 11.5 - 08 [place] 14.5 /2014 [place] HEMATOLOGY Platelet 285 133 - 450 08 [place] HEMATOLOGY MPV 8.2 7.4 - 10.4 08 [place] HEMATOLOGY Hct 34.7 36.0 - 08 [place] 48.0 /2014 [place] HEMATOLOGY MCV 88.9 80.0 - 03/30 [place] 98.0 Land HEMATOLOGY MCH 29.6 27.0 - 03/30 [place] 31.0 Land HEMATOLOGY RBC 3.90 4.20 - 03/30 [place] 5.40 Land HEMATOLOGY Hgb 11.5 12.0 - 03/30 [place] 16.0 Land HEMATOLOGY WBC 12.2 3.7 - 10.4 03/30 [place] HEMATOLOGY Eosinophils # 0.0 0.0 - 0.5 03/30 [place] HEMATOLOGY Monocytes # 0.5 0.0 - 0.8 03/30 [place] HEMATOLOGY Hypochrom Slight 03/30 Land HEMATOLOGY Microcyte 1+ None Seen 03/30 [place] *ABN* /2014 [place] (03/30/15 1:16 PM) HEMATOLOGY Basophils # 0.0 0.0 - 0.2 03/30 [place] HEMATOLOGY Segs 92.1 45.0 - 03/30 [place] 75.0 Land HEMATOLOGY Lymphocytes 3.8 20.0 - 03/30 [place] 40.0 Land HEMATOLOGY Monocytes 4.0 2.0 - 12.0 03/30 [place] HEMATOLOGY Eosinophils 0.0 0.0 - 4.0 03/30 [place] HEMATOLOGY Lymphocytes # 0.5 1.0 - 5.5 03/30 [place] HEMATOLOGY Segs-Bands # 11.2 1.5 - 8.1 03/30 [place] ar /2014 [place] HEMATOLOGY Basophils 0.1 0.0 - 1.0 03/30 [place] URINE AND UA Color Yellow Yellow 03/30 [place] STOOL *NA* /2014 [place] (03/30/15 1:16 PM) URINE AND UA Turbidity Clear Clear 03/30 [place] STOOL (03/30/15 1:16 PM) Land URINE AND UA Protein Negative Negative 03/30 [place] STOOL mg/dL mg/dL /2014 [place] URINE AND UA 0.2 0.1 - 1.0 03/30 [place] STOOL Urobilinogen /2014 [place] URINE AND UA Nitrite Negative Negative 03/30 [place] STOOL (03/30/15 1:16 PM) Land URINE AND UA Leuk Est Negative Negative 03/30 [place] STOOL (03/30/15 1:16 PM) Land URINE AND UA Glucose Negative Negative 03/30 [place] STOOL mg/dL mg/dL /2014 [place] URINE AND UA Bili Negative Negative 03/30 [place] STOOL *NA* /2014 [facility] (03/30/15 1:16 PM) URINE AND UA Ketones Negative Negative 03/30 [place] STOOL mg/dL mg/dL Land URINE AND UA Blood Negative Negative 03/30 [place] STOOL (03/30/15 1:16 PM) Land URINE AND UA pH 8.0 5.0 - 8.0 03/30 [place] STOOL Land URINE AND UA Spec Grav 1.010 <=1.030 03/30 [place] STOOL Land URINE AND UA Mucus Rare /LPF None Seen 03/30 [place] STOOL /LPF Land URINE AND UA Sq Epi Rare /LPF Few /LPF 03/30 [place] STOOL Land URINE AND UA Bacteria Occasional None Seen 03/30 [place] STOOL /HPF /HPF Land URINE AND UA RBC 3-5 /HPF 0 - 2 03/30 [place] STOOL Land URINE AND UA WBC 3-5 /HPF None Seen 03/30 [place] STOOL /HPF /2014 [place] Chemistry SODIUM 140 136 - 142 11/23 Medical Group Chemistry POTASSIUM 3.9 3.3 - 5.0 11/23 Medical Group Chemistry ALBUMIN 3.9 3.5 - 5.0 11/23 Medical Group Chemistry CALCIUM 8.9 8.8 - 10.0 04/ /2014 Medical Group Chemistry CREATININE 0.42 0.46 - 11/23 1.20 Medical Group Chemistry BUN 8 8 - 20 04/ /2014 Medical Group Chemistry ALK PHOS 78 26 - 102 04/ /2014 Medical Group Chemistry SGOT (AST) 16 10 - 42 11/23 /2014 Medical Group Chemistry SGPT (ALT) 15 11 - 43 11/23 /2014 Medical Group Chemistry TSH 0.62 0.34 - 11/23 5.60 /2014 Medical Group Hematology HGB 11.7 12.0 - 11/23 15.0 /2014 Medical Group Hematology HCT 35.2 35.0 - 11/23 43.8 /2014 Medical Group Hematology ESR 135 0 - 20 11/23 /2014 Medical Group Chemistry SODIUM 139 136 - 142 09/08 /2014 Medical Group Chemistry POTASSIUM 3.4 3.3 - 5.0 09/08 /2014 Medical Group Chemistry BUN 8 8 - 20 09/08 /2014 Medical Group Chemistry CREATININE 0.53 0.46 - 09/08 1.20 Medical Group Chemistry SGPT (ALT) 22 11 - 43 09/08 /2014 Medical Group Chemistry SGOT (AST) 20 10 - 42 09/08 Medical Group Chemistry SODIUM 139 136 - 142 09/08 Medical Group Chemistry POTASSIUM 3.4 3.3 - 5.0 09/08 /2014 Medical Group Chemistry BUN 8 8 - 20 09/08 /2014 Medical Group Hematology HGB 11.8 12.0 - 09/08 15.0 Medical Group Hematology HCT 33.8 35.0 - 09/08 43.8 /2014 Medical Group Hematology ESR 90 0 - 20 09/08 /2014 Medical Group Chemistry ALBUMIN 4.0 3.5 - 5.0 06/05 Medical Group Chemistry ALK PHOS 89 26 - 102 06/05 Medical Group Chemistry SGOT (AST) 35 10 - 42 06/05 Medical Group Chemistry ALBUMIN 4.0 3.5 - 5.0 06/05 Medical Group Chemistry ALBUMIN 4.0 3.5 - 5.0 06/05 Medical Group Chemistry ALK PHOS 89 26 - 102 06/05 Medical Group Chemistry SGOT (AST) 35 10 - 42 06/05 Medical Group Chemistry SGPT (ALT) 41 11 - 43 06/05 Medical Group Chemistry ALK PHOS 89 26 - 102 06/05 Medical Group Chemistry SGOT (AST) 35 10 - 06/05 Medical Group Hematology HGB 12.2 12.0 - 06/05 15.0 Medical Group Hematology HCT 37.2 35.0 - 06/05 43.8 Medical Group Hematology ESR 81 0 - 20 06/05 Medical Group Chemistry SODIUM 138 136 - 142 02/24 Medical Group Chemistry POTASSIUM 3.9 3.3 - 5.0 02/24 Medical Group Chemistry BUN 9 8 - 20 02/24 Medical Group Chemistry SODIUM 138 136 - 142 02/24 Medical Group Chemistry POTASSIUM 3.9 3.3 - 5.0 02/24 Medical Group Chemistry BUN 9 8 - 20 02/24 Medical Group Chemistry SODIUM 138 136 - 142 02/24 Medical Group Chemistry POTASSIUM 3.9 3.3 - 5.0 02/24 Medical Group Chemistry BUN 9 8 - 20 02/24 Medical Group Chemistry SODIUM 138 136 - 142 02/24 Medical Group Chemistry POTASSIUM 3.9 3.3 - 5.0 02/24 Medical Group Chemistry BUN 9 8 - 20 02/24 Medical Group Chemistry CREATININE 0.45 0.46 - 02/24 1.20 Medical Group Chemistry SGPT (ALT) 18 - 02/24 Medical Group Chemistry SGOT (AST) 20 - 02/24 Medical Group Hematology HGB 12.2 12.0 - 02/24 15.0 Medical Group Hematology HCT 34.8 35.0 - 02/24 43.8 Medical Group Hematology ESR 99 0 - 20 02/24 Medical Group Chemistry SGPT (ALT) 25 - 12/15 Medical Group Chemistry SGOT (AST) 16 - 12/15 Medical Group Chemistry SGPT (ALT) 25 12/15 Medical Group Chemistry SGOT (AST) 16 12/15 Medical Group Chemistry SGPT (ALT) 25 12/15 Medical Group Chemistry SGOT (AST) 16 12/15 Medical Group Chemistry SGPT (ALT) 25 12/15 Medical Group Chemistry SGOT (AST) 16 12/15 Medical Group Chemistry SGPT (ALT) 25 12/15 Medical Group Chemistry SGOT (AST) 16 12/15 Medical Group Hematology HGB 12.0 12.0 - 12/15 15.0 /2013 Medical Group Hematology HCT 35.3 35.0 - 12/15 MH 43.8 /2014 Medical Group Hematology ESR 96 0 - 20 12/15 Medical Group Chemistry TSH 0.61 09/18 Medical Group Chemistry TSH 0.61 09/18 Medical Group Chemistry TSH 0.61 09/18 Medical Group Chemistry TSH 0.61 09/18 Medical Group Chemistry TSH 0.61 09/18 Medical Group Pathology Reports No Data Provided for This Section Diagnostic Reports Report Value Date Source Chest 2 views DX EXAM: XR CHEST 2 VIEWS 02/12/2017 [facility] DATE: 02/12/2017 8:39 AM CDT INDICATION: - cough/right sided crackles COMPARISON: 09/12/2016 TECHNIQUE: PA and lateral chest radiographs FINDINGS: Chronic lung markings are again noted bilaterall y. No acute superimposed consolidation or effusion is seen. The cardiomediastinal silhouette is stable. The bones are markedly osteopenic. Severe degenerative changes are again noted at t he left shoulder. IMPRESSION: Chronic lung changes without acute abnormality. SL: [id number] Chest 2 views DX Exam: Chest x-ray, 2 views 09/12/2016 Sam Fraire Reason for Exam: pneumonia Comparison Exam: 08/15/2016 Discussion: Cardiac silhouette is within normal limits for size. Mild central vascular congestion. No focal lung consolidations identified. No pleural effusions are seen. No appreciable evidence seen for pneumothor ax. Osteoarthritic changes s een within the glenohumeral joints bilaterally, left greater than right. Impression: 1. No focal lung consolidations identified. Chest 2 views DX Addendum: 08/15/2016 Becka reveles Questionable right middle lo be atelectasis on the lateral view. This may be artifactual due to superimposition of soft tissues. Consider further evaluation with CT chest for further characterization. These findings were discusse d with Dr. 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 CLINICAL HISTORY: upper back pain,hyperhidrosis /ra AGE: 60 years GENDER: Female TECHNIQUE: PA and lateral chest radiographs, 2 v iews. COMPARISON: None FINDINGS: The cardiomediastinal silhouette is within meena l limits. No focal airspace or interst itial opacities are seen. No pleural effusions. No pneumothorax. Severe narrowing of the bila teral acromiohumeral distance consistent with chronic rotator cuff tearing. Moderate osseous demineralization. IMPRESSION: No acute cardiopulmonary abnormality. Soft Tissue Soft tissue ultrasound of the neck. 08/27/2015 [facility] [place] Head/Neck US HISTORY: Palpable mass right inferior lateral ce rvical region. IMPRESSION: 1. Grouped, round and ovoid hypoechoic and complex echo soft tissue masses noted in the right inferior lateral neck and right submandibular region that corresponds to the area of palpable mass. Largest of these measures approximat nataliia 1 x 1.8 cm. Ultrasonic appearance would favor necrotic lymph nodes secondary to infection or some other form of inflammatory process as opposed to neoplasm. However, if f urther imaging is clinically indicated, CT or MR I of the neck recommended. Consultation Notes No Data Provided for This Section Discharge Summaries No Data Provided for This Section History and Physicals No Data Provided for This Section Vital Signs Vital Sign Value Date Comments Source Height 144.78 cm 02/19/2020 [facility] Weight 51.818 02/19/2020 [facility] BMI Calculated 24.72 02/19/2020 [facility] Systolic (mm Hg) 142 05/21/2019 [facility] Diastolic (mm Hg) 88 05/21/2019 [facility] Heart Rate 86 05/21/2019 [facility] Temperature Oral (F) 98.0 F 05/21/2019 [facility] Height 144.78 cm 05/21/2019 [facility] Weight 52.045 05/21/2019 [facility] BMI Calculated 24.83 05/21/2019 [facility] Weight 50.227 06/17/2018 [facility] BMI Calculated 23.96 06/17/2018 [facility] Height 144.78 cm 06/17/2018 [facility] Systolic (mm Hg) 130 06/17/2018 [facility] Diastolic (mm Hg) 84 06/17/2018 [facility] Heart Rate 91 06/17/2018 [facility] Temperature Oral (F) 97.9 F 06/17/2018 [facility] Temperature Oral (F) 98.2 F 04/09/2018 [facility] BMI Calculated 23.45 04/09/2018 [facility] Weight 49.148 04/09/2018 [facility] Height 144.78 cm 04/09/2018 [facility] Heart Rate 88 04/09/2018 [facility] Systolic (mm Hg) 149 04/09/2018 [facility] Diastolic (mm Hg) 70 04/09/2018 [facility] Systolic (mm Hg) 140 02/27/2018 [facility] Diastolic (mm Hg) 80 02/27/2018 [facility] BMI Calculated 22.88 02/27/2018 [facility] Weight 47.955 02/27/2018 [facility] Temperature Oral (F) 98.0 F 02/27/2018 [facility] Respitory Rate 17 02/27/2018 [facility] Heart Rate 88 02/27/2018 [facility] Height 144.78 cm 02/27/2018 [facility] Systolic (mm Hg) 168 02/27/2018 [facility] Diastolic (mm Hg) 81 02/27/2018 [facility] Systolic (mm Hg) 160 01/28/2018 [facility] Diastolic (mm Hg) 90 01/28/2018 [facility] Weight 46.989 01/28/2018 [facility] BMI Calculated 22.42 01/28/2018 [facility] Height 144.78 cm 01/28/2018 [facility] Heart Rate 85 01/28/2018 [facility] Temperature Oral (F) 98.1 F 01/28/2018 [facility] Systolic (mm Hg) 187 01/28/2018 [facility] Diastolic (mm Hg) 91 01/28/2018 [facility] Weight 45.682 08/30/2017 [facility] BMI Calculated 21.42 08/30/2017 [facility] Height 146.05 cm 08/30/2017 [facility] Systolic (mm Hg) 129 08/30/2017 [facility] Diastolic (mm Hg) 72 08/30/2017 [facility] Heart Rate 105 08/30/2017 [facility] Temperature Oral (F) 99.3 F 08/30/2017 [facility] Weight 46.591 08/06/2017 [facility] BMI Calculated 23.03 08/06/2017 [facility] Respitory Rate 21 08/06/2017 [facility] Heart Rate 89 08/06/2017 [facility] Temperature Oral (F) 98.1 F 08/06/2017 [facility] Height 142.24 cm 08/06/2017 [facility] Systolic (mm Hg) 124 08/06/2017 [facility] Diastolic (mm Hg) 75 08/06/2017 [facility] Respitory Rate 18 03/30/2015 [place] Heart Rate 85 03/30/2015 [place] Temperature Oral (F) 98.7 F 03/30/2015 [place] Systolic (mm Hg) 109 03/30/2015 [place] Diastolic (mm Hg) 55 03/30/2015 [place] Respitory Rate 21 03/30/2015 [place] Heart Rate 99 03/30/2015 [place] Systolic (mm Hg) 121 03/30/2015 [place] Diastolic (mm Hg) 66 03/30/2015 [place] Weight 53.182 03/30/2015 [place] Systolic (mm Hg) 122 03/30/2015 [place] Diastolic (mm Hg) 60 03/30/2015 [place] Heart Rate 118 03/30/2015 [place] Respitory Rate 28 03/30/2015 [place] Temperature Oral (F) 99.0 F 03/30/2015 [place] Weight 117.0 03/19/2015 [facility] Systolic (mm Hg) 124 03/19/2015 [facility] Diastolic (mm Hg) 78 03/19/2015 [facility] Heart Rate 82 03/19/2015 [facility] Temperature Oral (F) 97.9 F 03/19/2015 [facility] Respitory Rate 16 03/19/2015 [facility] Weight 118.6 11/23/2014 [facility] Temperature Oral (F) 98.0 F 11/23/2014 [facility] Respitory Rate 16 11/23/2014 [facility] Heart Rate 94 11/23/2014 [facility] Systolic (mm Hg) 130 11/23/2014 [facility] Diastolic (mm Hg) 77 11/23/2014 [facility] Weight 120 10/05/2014 [facility] Temperature Oral (F) 98.7 F 10/05/2014 [facility] Heart Rate 88 10/05/2014 [facility] Respitory Rate 16 10/05/2014 [facility] Systolic (mm Hg) 90 10/05/2014 [facility] Diastolic (mm Hg) 70 10/05/2014 [facility] Weight 121.6 09/08/2014 [facility] Systolic (mm Hg) 114 09/08/2014 [facility] Temperature Oral (F) 99.0 F 09/08/2014 [facility] Respitory Rate 20 09/08/2014 [facility] Heart Rate 96 09/08/2014 [facility] Diastolic (mm Hg) 72 09/08/2014 [facility] Weight 121.8 08/06/2014 [facility] Temperature Oral (F) 97.6 F 08/06/2014 [facility] Respitory Rate 20 08/06/2014 [facility] Heart Rate 92 08/06/2014 [facility] Systolic (mm Hg) 116 08/06/2014 [facility] Diastolic (mm Hg) 72 08/06/2014 [facility] Weight 123.8 07/20/2014 [facility] Temperature Oral (F) 97.2 F 07/20/2014 [facility] Respitory Rate 16 07/20/2014 [facility] Heart Rate 80 07/20/2014 [facility] Systolic (mm Hg) 112 07/20/2014 [facility] Diastolic (mm Hg) 70 07/20/2014 [facility] Weight 123.4 06/05/2014 [facility] Temperature Oral (F) 97.8 F 06/05/2014 [facility] Respitory Rate 16 06/05/2014 [facility] Heart Rate 80 06/05/2014 [facility] Systolic (mm Hg) 116 06/05/2014 [facility] Diastolic (mm Hg) 64 06/05/2014 [facility] Weight 122.4 02/24/2014 [facility] Temperature Oral (F) 97.5 F 02/24/2014 [facility] Respitory Rate 16 02/24/2014 [facility] Heart Rate 80 02/24/2014 [facility] Systolic (mm Hg) 114 02/24/2014 [facility] Diastolic (mm Hg) 68 02/24/2014 [facility] Weight 119.4 12/15/2013 [facility] Temperature Oral (F) 98.3 F 12/15/2013 [facility] Heart Rate 60 12/15/2013 [facility] Systolic (mm Hg) 108 12/15/2013 [facility] Diastolic (mm Hg) 70 12/15/2013 [facility] Respitory Rate 20 12/15/2013 [facility] Weight 121 11/05/2013 [facility] Temperature Oral (F) 97.8 F 11/05/2013 [facility] Heart Rate 68 11/05/2013 [facility] Systolic (mm Hg) 114 11/05/2013 [facility] Diastolic (mm Hg) 72 11/05/2013 [facility] Respitory Rate 16 11/05/2013 [facility] Weight 124 08/06/2013 [facility] Temperature Oral (F) 98.4 F 08/06/2013 [facility] Heart Rate 64 08/06/2013 [facility] Systolic (mm Hg) 110 08/06/2013 [facility] Diastolic (mm Hg) 70 08/06/2013 [facility] Respitory Rate 16 08/06/2013 [facility] Weight 122.4 05/20/2013 [facility] Temperature Oral (F) 97.8 F 05/20/2013 [facility] Heart Rate 64 05/20/2013 [facility] Systolic (mm Hg) 112 05/20/2013 [facility] Diastolic (mm Hg) 78 05/20/2013 [facility] Respitory Rate 16 05/20/2013 [facility] Weight 125.8 01/08/2013 [facility] Temperature Oral (F) 98.9 F 01/08/2013 [facility] Heart Rate 64 01/08/2013 [facility] Systolic (mm Hg) 96 01/08/2013 [facility] Diastolic (mm Hg) 68 01/08/2013 [facility] Respitory Rate 20 01/08/2013 [facility] Weight 126 12/17/2012 [facility] Systolic (mm Hg) 90 12/17/2012 [facility] Diastolic (mm Hg) 70 12/17/2012 [facility] Temperature Oral (F) 97.4 F 12/17/2012 [facility] Heart Rate 80 12/17/2012 [facility] Respitory Rate 20 12/17/2012 [facility] Weight 125 08/07/2012 [facility] Temperature Oral (F) 98.0 F 08/07/2012 [facility] Systolic (mm Hg) 110 08/07/2012 [facility] Diastolic (mm Hg) 70 08/07/2012 [facility] Heart Rate 76 08/07/2012 [facility] Respitory Rate 20 08/07/2012 [facility] Height 57.5 03/19/2012 [facility] Weight 126 03/19/2012 [facility] Temperature Oral (F) 98.2 F 03/19/2012 [facility] Heart Rate 68 03/19/2012 [facility] Systolic (mm Hg) 108 03/19/2012 [facility] Diastolic (mm Hg) 62 03/19/2012 [facility] Respitory Rate 16 03/19/2012 [facility] Encounters Location Location Encounter Encounter Reason Attending ADM DC Stat us Source Details Type Number For Provider Date Date Visit [facility] Lab Report [id number] [place] 02/24 02/24 [place] [facility] 7980 Jay Jay, /2013 Me salas Guo MD [facility] Office [id number] Art 02/24 02/24 [place] Visit 0640 Jay Jay, /2013 Me salas Guo MD [facility] Lab Report [id number] Art 06/05 06/05 [place] [facility] 5840 Jay Jay, Me salas Guo MD [facility] Office [id number] Art 06/05 06/05 [place] Medical Visit 0690 Jay Jay, Me salas Guo MD [facility] Office [id number] Art 07/20 07/20 [place] Medical Visit 6170 Jay Jay, /2013 Me salas Guo MD [facility] [place] [id number] Art 08/06 08/06 [place] Medical Visit 0450 Jay Jay, /2013 Me salas Guo MD [facility] Office [id number] Art 09/08 09/08 [place] Visit 5370 Demetrice, /2014 Me salas Guo MD [facility] Lab Report [id number] Art 09/08 09/08 [place] [facility] 8610 Jay Jay, /2014 Me salas Guo MD [facility] Lab Report [id number] Art 10/05 10/05 [place] [facility] [address] [place], /2014 Me salas Guo MD [facility] Office [id number] Art 11/23 11/23 [place] Visit 8280 [place], /2014 Me salas Guo MD [facility] Lab Report [id number] Art 11/23 11/23 [place] [address] [facility], /2014 Me salas Guo MD [facility] Family [facility] Outpt Diag [id number] Art 12/04 12/05 [facility] [place] [facility] Office [id number] Art 03/19 03/19 [place] Medical Visit 7730 , /2014 Me salas Guo MD [facility] Outpatient [id number] BRANDY 03/[address] [facility] /2014 [facility] [place] [place] [id number] Nacho Son 03/30 03/30 [place] [facility] /2014 [place] [facility] Outpatient [id number] ART 04/13 Active [facility] /2014 [place] Outpatient [id number] ART 04/13 Active [facility] /2014 [place] Outpatient [id number] ART 04/19 Active [facility] /2014 [place] [id number] ART 07/19 Active [facility] /2014 [place] Outpatient [id number] ART 08/18 Active [facility] /2014 [facility] Outpt Diag [id number] Art 08/27 08/[address] [facility] [address] [facility] /2015 [facility] [place] Outpatient [id number] ART 10/04 [facility] /[facility] [place] [facility] [id number] ART 08/15 Active [facility] [place] Outpatient [id number] XRAY VISIT 08/15 Act [facility] /2015 [place] Outpatient [id number] XRAY VISIT 09/12 Act [facility] /2016 [place] Outpatient [id number] XRAY VISIT 09/12 Act [facility] /2016 [place] [facility] [id number] ART 09/21 Active [facility] [place] /2016 [place] Outpatient [id number] ART 01/08 Active [facility] [place] Outpatient [id number] JERECIA 02/08 Active [facility] [place] [id number] XRAY VISIT 02/12 Act [facility] [place] Outpatient [id number] ART 04/02 Active [facility] [place] Outpatient [id number] ART 04/30 Active [facility] [place] [id number] JERECIA 08/06 [facility] [id number] Jerecia 08/06 08/07 [facility] [place] Outpatient [id number] ART 08/30 Active [facility] [id number] Art 08/30 08/31 Primary Kl /2017 [facility] [place] Outpatient [id number] JERECIA 01/28 Active [facility] [id number] Jerecia 01/28 01/29 [facility] [place] Outpatient [id number] JERECIA 02/27 [facility] [id number] Jerecia 02/27 02/28 [facility] [id number] 03/14 03/16 Primary Message /2017 [facility] [place] Outpatient [id number] JERECIA 04/09 [facility] [id number] Art 04/09 04/10 Primary Kl[facility] /2017 [facility] [place] Outpatient [id number] PRIMO 06/17 Active [facility] Outpatient [id number] Art 06/17 06/18 Primary [place] /2017 [facility] [place] Outpatient [id number] JERECIA 07/09 Active [facility] [id number] Jerecia 07/09 07/09 [facility] [place] Outpatient [id number] Jerecia 05/21 Active [facility] [id number] Jerecia 05/21 05/22 [facility] [place] Outpatient [id number] Brandy 02/18 Active [facility] [id number] Brandy 02/18 02/19 Primary [facility] [place] Outpatient [id number] Jerecia 03/11 [facility] Phone [id number] 03/11 03/13 Primary [facility] Outpatient [id number] Jerecia 03/11 03/12 [facility] [place] Procedures Procedure Code Date Perfomer Comments Source colonoscopy 15338 01/31/20 Done - Medical 13 diverticulosis Group ORIF - Open reduction [id number] 08/20/19 Left Elbow Medical and internal fixation of 12 Group, fracture<sup>1</sup> [facility] [place] Excision of lipoma of [id number] 08/20/19 Medical subcutaneous tissue 11 Group , [facility] [place] Colonoscopy [id number] 08/20/19 Medical 08 Group, [facility] [place] Esophagoduodenostomy [id number] 08/20/19 [facility] edical 08 Group, [facility] [place] Knee [id number] 08/20/19 Bilateral Medical replacement<sup>2</sup> 07 G roup, [facility] [place] Hip [id number] 08/20/19 Bilateral Medical replacement<sup>3</sup> 05 G roup, [facility] [place] MCPJ - Arthroplasty [id number] 08/20/19 [facility] dical metacarpophalangeal 00 Group , joint of finger [facility] [place] Assessment and Plan No Data Provided for This Section Plan of Care No Data Provided for This Section Social History Social History Date Source Social History TypeResponse 03/11/2020 [facility] Smoking Status Never smoker; Exposure to Tobacco Smoke None; Cigarette Smoking Last 365 Days No; Reg Smoking Cessation Counseling No entered on: 03/11/20 Social History TypeResponse 08/18/2015 [place] Smoking Status Never smoker; Exposure to Tobacco Smoke None; Cigarette Smoking Last 365 Days No; Reg Smoking Cessation Counseling No Social History TypeResponse 03/30/2015 [place] Smoking Status Never smoker; Exposure to Tobacco Smoke None; Cigarette Smoking Last 365 Days No; Reg Smoking Cessation Counseling No Family History No Data Provided for This Section Advance Directives No Data Provided for This Section Functional Status No Data Provided for This Section
--- OUTSIDE RECORDS SUMMARY | 2020-04-23 07:23 | XMS REPORT | Summary of Care ---
:1955 Author Organization [facility] [place] Address [address] [place] [id number]- Care Team Providers Name Role Phone Eduardo Sauer Primary Care Physician Encounter HQ Jose(YULISA) [id number] Date(s): 02/19/20 - 02/19/20 [facility] [place] [address] [place] [address]- [phone] Discharge Disposition: Home or Self Care Attending Physician: Brandy Wilson MSN, RN, TUCKPOINTER-C Vital Signs Most recent to oldest [Reference Range]: 1 Height 144.78 cm (02/19/20 4:17 PM) Weight 51.818 kg (02/19/20 4:17 PM) Body Mass Index 24.72 m2 (02/19/20 4:17 PM) Problem List Condition Effective Dates Status Health Status Informant Acute maxillary sinusitis1, 2 07/20/14 Resolved Allergic rhinitis3 03/19/15 Resolved Cough4 11/23/14 Resolved Dry skin5 03/19/12 Resolved Dyssomnia6 04/09/12 Resolved Elevated levels of transaminase & 01/08/13 Active lactic acid dehydrogenase7 Hip pain8 03/19/12 Resolved Influenza9 Resolved Influenza [id number] Resolved Joint effusion of ankle AND/OR 08/06/14 Resolved foot11 Long-term drug [id number] 08/07/12 Resolved Lung mass13, 14 11/26/14 Resolved Neck pain15 06/05/14 Active RA (rheumatoid arthritis)(Confirmed) Active Tinea pedis16, 17 11/05/13 Resolved Upper respiratory cnlihubtw88, 19, 12/15/13 Resolved 20, 21 1Data migrated [...] on 12/18/14. Originally documented as [place]. Medications Azithromycin 5 Day Dose Pack 250 mg oral tablet See Instructions, Take 2 tablets by mouth the first day then 1 tablet by mouth days 2-5., X 5 day, #6 tab, 0 Refill(s), Pharmacy: [facility]/pharmacy #[id number], 144.78, cm, 02/19/20 16:17:00 CDT, Height, 51.818,kg, 02/19/20 16:17:00 CDT, Weight Start Date: 02/19/20 Stop Date: 02/24/20 Status: OrderedTessalon 200 mg oral capsule 200 mg = 1 cap, PO, TID, X 10 day, # 30 cap, 0 Refill(s), Pharmacy: [facility]/pharmacy #[id number], 144.78, cm, 02/19/20 16:17:00 CDT, Height, 51.818, kg, 02/19/20 16:17:00 CDT, Weight Start Date: 02/19/20 Stop Date: 02/29/20 Status: Ordered Results No data available for this section Immunizations Given and Recorded Vaccine Date Status Refusal Reason pneumococcal 13-valent vaccine1 09/21/16 Given Hx influenza vaccine-unspecified2 06/05/14 Given influenza virus vaccine, inactivated3 08/06/13 Given tetanus-diphtheria toxoids4 12/16/10 Given pneumococcal 23-valent vaccine5 12/07/08 Given 1Result Comment: [facility]: [id number] No adverse reactions noted.2Result Comment: fluzone (quadrivalent) no preservative (>3 yrs.) [[id number]]. Migrated from OBS ; Data migrated from [employer] on 09/21/2015.3Result Comment: fluzone preservative free (>3 yrs.) [[id number]]. Migrated from OBS ; Data migratedfrom [employer] on 09/21/2015.4Result Comment: td. Migrated from OBS ; Data migrated from [employer] on 09/21/2015.5Result Comment: pneumovax. Migrated from OBS ; Data migrated from [employer] on 09/21/2015. Procedures Procedure Date Related Diagnosis Body Site Status ORIF - Open reduction and internal 08/20/11 Completed fixation of fracture1 Excision of lipoma of subcutaneous 2010 Completed tissue Colonoscopy 08/20/07 Completed Esophagoduodenostomy 08/20/07 Complet ed Knee replacement2 08/20/06 Completed Hip replacement3 08/20/04 Completed MCPJ - Arthroplasty metacarpophalangeal 1999 Completed joint of finger 1Left [id number] Social History Social History Type Response Smoking Status Never smoker; Exposure to To bacco Smoke None; Cigarette Smoking Last 365 Days No; Reg Smoking Cessation Counseling No entered on: 02/19/20 Assessment and Plan No data available for this section
--- OUTSIDE RECORDS SUMMARY | 2020-04-23 07:23 | XMS REPORT | Summary of Care ---
:1955 Author Organization [facility] Address [address] [place] [id number]- Care Team Providers Name Role Phone Eduardo Sauer Primary Care Physician Encounter HQ Jose(FIN) [phone] Date(s): 03/11/20 - 03/11/20 [facility] [place] [address] [place] [address]- [phone] Encounter Diagnosis Allergic rhinitis (Discharge Diagnosis) - 03/12/20 Discharge Disposition: Home or Self Care Attending Physician: Chloe Snow MD Vital Signs No data available for this section Problem List Condition Effective Dates Status Health Status Informant Acute maxillary sinusitis1, 2 07/20/14 Resolved Allergic rhinitis3 03/19/15 Resolved Cough4 11/23/14 Resolved Dry skin5 03/19/12 Resolved Dyssomnia6 04/09/12 Resolved Elevated levels of transaminase & 01/08/13 Active lactic acid dehydrogenase7 Hip pain8 03/19/12 Resolved Influenza9 Resolved Influenza [id number] Resolved Joint effusion of ankle AND/OR 08/06/14 Resolved foot11 Long-term drug [id number] 08/07/12 Resolved Lung mass13, 14 11/26/14 Resolved Neck pain15 06/05/14 Active RA (rheumatoid arthritis)(Confirmed) Active Tinea pedis16, 17 11/05/13 Resolved Upper respiratory hiuajtbya47, 19, 12/15/13 Resolved 20, 21 1Data migrated [...] on 12/18/14. Originally documented as [place]QU[place]. Medications Bromfed DM oral syrup 5 mL, PO, TID, PRN cough, X 8 day, # 120 mL, 0 Refill(s), Pharmacy: [facility]/pharmacy #[id number], 144.78, cm, 02/19/20 16:17:00 CDT, Height, 51.818, kg, 02/19/20 16:17:00 CDT, Weight Start Date: 03/11/20 Stop Date: 03/19/20 Status: Ordereddoxycycline hyclate 100 mg oral tablet 100 mg = 1 tab, PO, Q12H, X 5 day, # 10 tab, 0 Refill(s), Pharmacy: [facility]/pharmacy #[id number], 144.78, cm, 02/19/20 16:17:00 CDT, Height, 51.818, kg, 02/19/20 16:17:00 CDT, Weight Start Date: 03/11/20 Stop Date: 03/16/20 Status: Ordered Results No data available for this section Immunizations Given and Recorded Vaccine Date Status Refusal Reason pneumococcal 13-valent vaccine1 09/21/16 Given Hx influenza vaccine-unspecified2 06/05/14 Given influenza virus vaccine, inactivated3 08/06/13 Given tetanus-diphtheria toxoids4 12/16/10 Given pneumococcal 23-valent vaccine5 12/07/08 Given 1Result Comment: [facility]: [id number] No adverse reactions noted.2Result Comment: fluzone (quadrivalent) no preservative (>3 yrs.) [[id number]]. Migrated from OBS ; Data migrated from [employer] on 09/21/2015.3Result Comment: fluzone preservative free (>3 yrs.) [[id number]]. Migrated from OBS ; Data migratedfrom [employer] [...] replacement3 08/20/04 Completed MCPJ - Arthroplasty metacarpophalangeal 2000 Completed joint of finger 1Left [id number] Social History Social History Type Response Smoking Status Never smoker; Exposure to To bacco Smoke None; Cigarette Smoking Last 365 Days No; Reg Smoking Cessation Counseling No entered on: 03/11/20 Assessment and Plan No data available for this section
--- OUTSIDE RECORDS SUMMARY | 2020-04-23 07:27 | XMS REPORT | Continuity of Care Document ---
:1955 Author Organization [facility] t Address [address] [place] [address] Care Team Providers Name Role Phone Edy JIMENEZ Primary Care Physician Sergio HAMILTON Attending Clinician Rocky Snow Attending Clinician Steve Attending Clinician Jessica DONG Attending Clinician Unavailable Randall DONG Attending Clinician Unavailable Jose Daniel Goyal Attending Clinician JasvirKing Attending Clinician Payers Payer Name Policy Policy Number Effective Expiration Source Type Date Date MEDICAREMEDICARE PART xxxxxxxxxxx 2008 Jovanny artem Clark AND 00:00:00 [place] Bxxxxxxxxxxx2008[place] [facility] Condition Condition Condition Status Onset Resolution Last Treating Co mments Source Name Details Category Date Date Treatment Clinician Date Long-term Long-term Disease Active Jazmin ston use of use of 5-30 [facility] high-risk high-risk 00:00: st medication medication 00 High risk High risk Disease Active Jazmin ston medication medication 03-10 Me thodi s (not s (not 00:00: st anticoagul anticoagul 00 ants) ants) long-term long-term use use Vitamin D Vitamin D Disease Active Jazmin ston deficiency deficiency - Me thodi 00:00: st 00 Osteoporos Osteoporos Disease Active [place] is is 03-10 [facility] 00:00: st 00 L04.0 - Diagnosis Active 2014-082015-08-27 [place] "ACUTE 10:41:00 l LYMPHADENI L04.0 - 00:01: Her grubbs TIS OF "ACUTE 00 FACE, H" LYMPHADENI TIS OF FACE, H" Active 08/18/2015 [facility] [place] BODY PAIN Diagnosis Active 2015-03-30 Memoria 8-11 14:39:00 l BODY 00:00: [place] PAIN 00 Active 03/30/2015 [place] LUNG Condition Active 2015-03-19 Mem oria NODULE 4- 10:25:13 l LUNG 00:00: [place] NODULE 00 Active 11/26/2014 [facility] Dyspnea Problem Active 2015-04-02 Sam roberto (finding) 4- 08:45:33 l Dyspnea 00:00: Owen (finding) 00 Active 11/23/2014 Problem 04/02/2015 Data migrated from [facility] on 02/24/15. [place] Pneumonia Problem Active 2015-04-02 Me moria (disorder) 4- 08:45:33 l 00:00: Owen Pneumonia 00 (disorder) Active 11/23/2014 Problem 04/02/2015 Data migrated from [facility] on 02/24/15. [place] SYMPTOM, Condition Active 2015-03-19 M emoria COUGH 4-06 10:25:13 l SYMPTOM, 00:00: Dylon n COUGH 00 Active 11/23/2014 [facility] SHORTNESS Condition Active 2015-03-19 Memoria OF BREATH 4-06 10:25:13 l 00:00: [place] SHORTNESS 00 OF BREATH Active 11/23/2014 [facility] PNEUMONIA Condition Active 2015-03-19 Memoria 4-06 10:25:13 l 00:00: Owen PNEUMONIA 00 Active 11/23/2014 [facility] Fever Problem Active 2015-04-02 Memor ia (finding) 2-16 08:45:33 l Fever 00:00: Owen (finding) 00 Active 10/05/2014 Problem 04/02/2015 Data migrated from [employer] on 02/24/15. [place] FEVER Condition Active 2015-03-19 Mem oria 2-16 10:25:13 l FEVER 00:00: Juno 00 Active 10/05/2014 [facility] JOINT Condition Active 2013-082015-03-19 Mem oria EFFUSION, 2-18 10:25:13 l ANKLE JOINT 00:00: Juno EFFUSION, 00 ANKLE Active 08/06/2014 [facility] Neck pain Problem Active 2013-082020-03-14 Me moria (finding) 0-17 23:35:17 l Neck 00:00: Owen pain 00 (finding) Active 06/05/2014 Problem 03/14/2020 Data migrated from [employer] on 01/16/15. [facility] [place] CERVICALGI Condition Active 2013-082015-03-19 Memoria A 0-17 10:25:13 l 00:00: Owen CERVICALGI 00 A Active 06/05/2014 [facility] PREVENTIVE Condition Active 2013-082015-03-19 Memoria HEALTH 0-17 10:25:13 l CARE 00:00: Owen PREVENTIVE 00 HEALTH CARE Active 06/05/2014 [facility] BODY MASS Condition Active 2015-03-19 Memoria INDEX 7-08 10:25:13 l 26.0-26.9, BODY 00:00: Dylon n ADULT MASS INDEX 00 26.0-26.9, ADULT Active 02/24/2014 [facility] SWAN-NECK Condition Active 2015-03-19 Memoria DEFORMITY 7-08 10:25:13 l 00:00: [place] SWAN-NECK 00 DEFORMITY Active 02/24/2014 [facility] CONTRACTUR Condition Active 2015-03-19 Memoria E OF JOINT 7- 10:25:13 l OF 00:00: Owen MULTIPLE CONTRACTUR 00 SITES E OF JOINT OF MULTIPLE SITES Active 02/24/2014 [facility] Elevated Problem Active 2020-03-14 Mem oria levels of 5-22 23:35:17 l transamina Elevated 00:00: He rmann se & levels of 00 lactic transamina acid se & dehydrogen lactic ase acid (finding) dehydrogen ase (finding) Active 01/08/2013 Problem 03/14/2020 Data migrated from [employer] on 01/16/15. [facility] [place] TRANSAMINA Condition Active 2015-03-19 Memoria SES, 5-22 10:25:13 l SERUM, 00:00: [place] ELEVATED TRANSAMINA 00 SES, SERUM, ELEVATED Active 01/08/2013 [facility] LONG-TERM Condition Active 2011-082015-03-19 Memoria (CURRENT) 2-19 10:25:13 l USE OF 00:00: Owen OTHER LONG-TERM 00 MEDICATION (CURRENT) S USE OF OTHER MEDICATION S Active 08/07/2012 Condition 5 [facility] SLEEP Condition Active 2015-03-19 Mem oria DISTURBANC 8- 10:25:13 l E SLEEP 00:00: [place] DISTURBANC 00 E Active 04/09/2012 Condition 5 [facility] DRY SKIN Condition Active 2015-03-19 M emoria 03-19 10:25:13 l DRY SKIN 00:00: Dylon n 00 Active 03/19/2012 Condition 5 [facility] HIP PAIN, Condition Active 2015-03-19 Memoria BILATERAL 03-19 10:25:13 l HIP 00:00: [place] PAIN, 00 BILATERAL Active 03/19/2012 Condition 5 [facility] CONTRACTUR Condition Active 2015-03-19 Memoria E OF UPPER 03-19 10:25:13 l ARM JOINT 00:00: Owen CONTRACTUR 00 E OF UPPER ARM JOINT Active 03/19/2012 Condition [facility] Arthritis Arthritis Disease Active Jazmin ston Methodi st Visual Visual Disease Active [place] impairment impairment Me thodi st Muscle Muscle Disease Active [place] weakness weakness Method i st Influenza Problem Resolve 2020-03-14 M emoria (disorder) d 23:35:17 l [place] Influenza (disorder) Resolved Problem 03/14/2020 Data migrated from [facility] on 03/05/15. [facility] [place] Rheumatoid Problem Active 2020-03-14 Sandra emoria arthritis 23:35:17 l (disorder) Dylon anushka Rheumatoid arthritis (disorder) Active Problem 03/14/2020 [facility] [place] RHEUMATOID Condition Active 2015-03-19 Memoria ARTHRITIS 10:25:13 l [place] RHEUMATOID ARTHRITIS Active Condition 03/19/2015 [facility] Allergic Problem 2020-03-13 2020-03-13 Memoria rhinitis, 03-12 23:54:25 23:54:25 l unspecifie Allergic 17:00: He rmann d rhinitis, 00 unspecifie d 03/12/2020 03/13/2020 [facility] Discharge Problem 2015-04-02 2015-04-02 Memoria Diagnosis: 03-30 08:45:33 08:45:33 l Myalgia 05:00: Owen Discharge 00 Diagnosis: Myalgia 03/30/2015 04/02/2015 [place] Discharge Problem 2015-04-02 2015-04-02 Memoria Diagnosis: 03-30 08:45:33 08:45:33 l Hx of 05:00: [place] rheumatoid Discharge 00 arthritis Diagnosis: Hx of rheumatoid arthritis 03/30/2015 04/02/2015 [place] History of Past Illness Condition Condition Condition Status Onset Resolution Last Treating Co mments Source Name Details Category Date Date Treatment Clinician Date Allergic Problem Resolve 2020-03-14 2020-03-14 Memoria rhinitis d 03-19 23:35:17 23:35:17 l (disorder) Allergic 00:00: He rmann rhinitis 00 (disorder) Resolved 03/19/2015 Problem 03/14/2020 Data migrated from [email or web address] on 04/10/15. [facility] [place] Lung mass Problem Resolve 2020-03-14 2020-03-14 Memoria (finding) d 11-26 23:35:17 23:35:17 l Lung 00:00: Owen mass 00 (finding) Resolved 11/26/2014 Problem 03/14/2020 Data migrated from [email or web address] on 04/10/15.Da ta migrated from [email or web address] on 02/24/15[facility] [place] [place] Cough Problem Resolve 2020-03-14 2020-03-14 Memoria (finding) d 4- 23:35:17 23:35:17 l Cough 00:00: Owen (finding) 00 Resolved 11/23/2014 Problem 03/14/2020 Data migrated from [employer] on 02/24/15. [facility] [place] [place] Effusion Problem Resolve 2013-082020-03-14 2020-03-14 Memoria of joint d 2-18 23:35:17 23:35:17 l of ankle Effusion 00:00: Herm francisco j AND/OR of joint 00 foot of ankle (disorder) AND/OR foot (disorder) Resolved 08/06/2014 Problem 03/14/2020 Data migrated from [employer] on 01/16/15. [facility] [place] Acute Problem Resolve 2013-082020-03-14 2020-03-14 Memoria maxillary d 2- 23:35:17 23:35:17 l sinusitis Acute 00:00: Dylon n (disorder) maxillary 00 sinusitis (disorder) Resolved 07/20/2014 Problem 03/14/2020 Data migrated from [employer] on 03/06/15.Da ta migrated from [employer] on 03/05/15. [facility] [place] Upper Problem Resolve 2020-03-14 2020-03-14 Memoria respirator d - 23:35:17 23:35:17 l y Upper 00:00: Juno infection respirator 00 (disorder) y infection (disorder) Resolved 12/15/2013 Problem 03/14/2020 Data migrated from [employer] on 03/06/15.Da ta migrated from [employer] on 03/06/15.Da ta migrated from [employer] on 03/05/15.Da ta migrated from [employer] on 03/05/15. [facility] [place] Tinea Problem Resolve 2020-03-14 2020-03-14 Memoria pedis d 3-19 23:35:17 23:35:17 l (disorder) Tinea 00:00: Kim nn pedis 00 (disorder) Resolved 11/05/2013 Problem 03/14/2020 Data migrated from [employer] on 03/06/15.Da ta migrated from [employer] on 03/05/15. [facility] [place] Long-term Problem Resolve 2011-082020-03-14 2020-03-14 Memoria drug d 10-08 23:35:17 23:35:17 l therapy 00:00: Juno (procedure Long-term 00 ) drug therapy (procedure ) Resolved 08/07/2012 Problem 03/14/2020 Data migrated from [employer] on 01/16/15. [facility] [place] Dyssomnia Problem Resolve 2020-03-14 2020-03-14 Memoria (disorder) d 04-09 23:35:17 23:35:17 l 00:00: Jun[place] Dyssomnia 00 (disorder) Resolved 04/09/2012 Problem 03/14/2020 Data migrated from [employer] on 01/16/15. [facility] [place] Dry skin Problem Resolve 2020-03-14 2020-03-14 Memoria (finding) d 03-19 23:35:17 23:35:17 l Dry skin 00:00: Dylon n (finding) 00 Resolved 03/19/2012 Problem 03/14/2020 Data migrated from [employer] on 01/16/15. [facility] [place] Hip pain Problem Resolve 2020-03-14 2020-03-14 Memoria (finding) d 03-19 23:35:17 23:35:17 l Hip pain 00:00: Dylon n (finding) 00 Resolved 03/19/2012 Problem 03/14/2020 Data migrated from [employer] on 01/16/15. [facility] [place] OTITIS Condition Inactiv 2015-03-19 2015-03-19 Memoria MEDIA, e 2-16 10:25:13 10:25:13 l LEFT OTITIS 00:00: Juno MEDIA, 00 LEFT Inactive 10/05/2014 [facility] CONTUSION, Condition Inactiv 2013-082015-03-19 2015-03-19 Memoria RIGHT KNEE e - 10:25:13 10:25:13 l 00:00: [place] CONTUSION, 00 RIGHT KNEE Inactive 08/06/2014 [facility] CONTUSION, Condition Inactiv 2013-082015-03-19 2015-03-19 Memoria THUMB e 2-18 10:25:13 10:25:13 l 00:00: Owen CONTUSION, 00 THUMB Inactive 08/06/2014 [facility] SINUSITIS, Condition Inactiv 2013-082015-03-19 2015-03-19 Memoria ACUTE e 2-01 10:25:13 10:25:13 l MAXILLARY 00:00: Owen SINUSITIS, 00 ACUTE MAXILLARY Inactive 07/20/2014 [facility] NEED FOR Condition Inactiv 2013-082015-03-19 2015-03-19 Memoria PROPHYLACT e 0-17 10:25:13 10:25:13 l IC NEED FOR 00:00: Dylon n VACCINATIO PROPHYLACT 00 N AND IC INOCULATIO VACCINATIO N AGAINST N AND INFLUENZA INOCULATIO N AGAINST INFLUENZA Inactive 06/05/2014 [facility] ALLERGIC Condition Inactiv 2015-03-19 2015-03-19 Memoria CONJUNCTIV e 4-28 10:25:13 10:25:13 l ITIS ALLERGIC 00:00: Dylon n CONJUNCTIV 00 ITIS Inactive 12/15/2013 [facility] ALLERGIC Condition Inactiv 2015-03-19 2015-03-19 Memoria RHINITIS e 4-28 10:25:13 10:25:13 l ALLERGIC 00:00: Dylon n RHINITIS 00 Inactive 12/15/2013 [facility] URI Condition Inactiv 2015-03-19 2015-03-19 Memoria e 4-28 10:25:13 10:25:13 l URI 00:00: Juno 00 Inactive 12/15/2013 Condition [facility] TINEA Condition Inactiv 2015-03-19 2015-03-19 Memoria PEDIS e 3-19 10:25:13 10:25:13 l TINEA 00:00: Owen PEDIS 00 Inactive 11/05/2013 [facility] NEED Condition Inactiv 2012-082015-03-19 2015-03-19 Memoria PROPHYLACT e 2- 10:25:13 10:25:13 l IC NEED 00:00: Juno VACCINATIO PROPHYLACT 00 N&INOCULAT IC ION FLU VACCINATIO N&INOCULAT ION FLU Inactive 08/06/2013 [facility] EFFUSION Condition Inactiv 2015-03-19 2015-03-19 Memoria OF UPPER e - 10:25:13 10:25:13 l ARM JOINT EFFUSION 00:00: Her grubbs OF UPPER 00 ARM JOINT Inactive 01/08/2013 [facility] PRESSURE Condition Inactiv 2011-082015-03-19 2015-03-19 Memoria ULCER e 10-08 10:25:13 10:25:13 l OTHER SITE PRESSURE 00:00: He rmann ULCER 00 OTHER SITE Inactive 08/07/2012 [facility] Allergies, Adverse Reactions, Alerts Allergy Allergy Status Severity Reaction(s) Onset Inactive Treating Comm ents Source Name Type Date Date Clinician Hydroxyc Propensi Active Itching Data [place] hloroqu[place] ty to 03-26 migrated Method i ne adverse 00:00: from GE st reaction 00 Centricit s to y on drug 12/18/14. Originall y documente d as PLAQUENIL .Data migrated from [facility] on 12/18/14. Originall y documente d as PLAQUENIL . Sulfa Propensi Active Itching, 2017-08 Itching [place] (Sulfona ty to Other (See 09-18 and pain Me thodi mide adverse Comments) 00:00: all over st Antibiot reaction 00 body ics) s to drug sulfa sulfa Active Memoria drugs<lora drugs<lora l p>1</sup p>1</sup Dylon n > > hydroxyc hydroxyc Active Memori a hloroqui hloroqui l ne<sup>1 ne<sup>1 Dylon n </sup> </sup> sulfa sulfa Active Memoria drugs<lora drugs<lora l p>2</sup p>2</sup Dylon n > > PLAQUENI PLAQUENI Active Memori a L L l [place] SULFA SULFA Active Memoria l [place] Family History Family Member Diagnosis Comments Start Date Stop Date Source Natural brother Cancer [facility] [place] Natural brother Hyperlipidemia [place] Natural brother Hypertension [facility] Social History Social Habit Start Date Stop Date Quantity Comments Source Sex Assigned At [facility] [place] Exposure to Not sure [place] Metho dist SARS-CoV-2 (event) Alcohol intake 2020-01-16 2020-01-16 Current [facility] thodist 00:00:00 00:00:00 non-drinker of alcohol (finding) Alcohol Comment 2016-03-01 2016-03-01 not found [facility] carlosodist 00:00:00 00:00:00 Smoking Status Start Date Stop Date Source Social History [facility] Medications Ordered Filled Start Stop Current Ordering Indication Dosage Frequency Signature Comments Components Source Medication Medication Date Date Medication? Clinician (SIG) Name Name leflunomide 2020-0 2020- No TAKE 1 Jazmin carrillo (ARAVA) 04-13 08-27 TABLET BY Met hodi MG tablet 00:00: 00:[address] 00 :00 EVERY DAY cycloSPORIN 2020-0 Yes 1[drp] Q.5D Administer [facility] 03-26 1 drop to Method[facility] (RESTASIS) 09:43: both eyes st 0.05 % 32 2 (two) ophthalmic times a emulsion day. calcium 2020-0 Yes 1{tbl} QD Take 1 [place] carbonate-v 03-26 tablet by Met hodi itamin D3 09:43: mouth st 500 mg-200 32 daily. unit per tablet folic acid 2020-0 Yes 1mg Q.5D Take 1 mg [place] (FOLVITE) 1 03-26 by mouth 2 Me thodi MG tablet 09:43: (two) st 32 times a day. doxycycline 2020-0 Yes 100 mg = 1 Memoria hyclate 100 7-23 tab, PO, l MG Oral 18:47: Q12H, X 5 Kim nn Tablet 00 day, # 10 tab, 0 Refill(s), Pharmacy: [facility] #[id number], 144.78, cm, 02/19/20 16:17:00 CDT, Height, 51.818, kg, 02/19/20 16:17:00 CDT, Weight doxycycline 2020-0 Yes 100 mg = 1 Memoria hyclate 100 7-23 tab, PO, l MG Oral 18:47: Q12H, X 5 Kim nn Tablet 00 day, # 10 tab, 0 Refill(s), Pharmacy: [id number], 144.78, cm, 02/19/20 16:17:00 CDT, Height, 51.818, kg, 02/19/20 16:17:00 CDT, Weight Bromphenira 2020-0 Yes 5 mL, PO, M emoria mine - TID, PRN l Maleate 0.4 18:46: cough, X 8 Juno MG/ML / day, # 120 Dextrometho mL, 0 rphan Refill(s), Hydrobromid Pharmacy: e 2 MG/ML / [id number], rine 144.78, Hydrochlori cm, de 6 MG/ML 02/19/20 Oral 16:17:00 Solution CDT, [Bromfed Height, DM] 51.818, kg, 02/19/20 16:17:00 CDT, Weight Bromphenira 2020-0 Yes 5 mL, PO, M emoria mine 03-11 TID, PRN l Maleate 0.4 18:46: cough, X 8 Owen MG/ML / day, # 120 Dextrometho mL, 0 rphan Refill(s), Hydrobromid Pharmacy: e 2 MG/ML / [id number], rine 144.78, Hydrochlori cm, de 6 MG/ML 02/19/20 Oral 16:17:00 Solution CDT, [Bromfed Height, DM] 51.818, kg, 02/19/20 16:17:00 CDT, Weight Azithromyci 2020-0 Yes See Memori a n 5 Day 02-18 Instructio l Dose Pack 21:25: ns, Take 2 He rmann 250 mg oral 00 tablets by tablet mouth the first day then 1 tablet by mouth days 2-5., X 5 day, # 6 tab, 0 Refill(s), Pharmacy: [id number], 144.78, cm, 02/19/20 16:17:00 CDT, Height, 51.818, kg, 02/19/20 16:17:00 CDT, Weight benzonatate 2020-0 Yes 200 mg = 1 Memoria 200 MG Oral 7-02 cap, PO, l Capsule 21:25: TID, X 10 Kim nn [Tessalon] 00 day, # 30 cap, 0 Refill(s), Pharmacy: [facility] #[id number], 144.78, cm, 02/19/20 16:17:00 CDT, Height, 51.818, kg, 02/19/20 16:17:00 CDT, Weight Azithromyci 2020-0 Yes See Memori a n 5 Day 02-18 Instructio l Dose Pack 21:25: ns, Take 2 He rmann 250 mg oral 00 tablets by tablet mouth the first day then 1 tablet by mouth days 2-5., X 5 day, # 6 tab, 0 Refill(s), Pharmacy: [facility] #[id number], 144.78, cm, 02/19/20 16:17:00 CDT, Height, 51.818, kg, 02/19/20 16:17:00 CDT, Weight benzonatate 2019- Yes 200 mg = 1 Memoria 200 MG Oral 7-02 cap, PO, l Capsule 21:25: TID, X 10 Kim nn [Tessalon] day, # 30 cap, 0 Refill(s), Pharmacy: [facility] #[id number], 144.78, cm, 02/19/20 16:17:00 CDT, Height, 51.818, kg, 02/19/20 16:17:00 CDT, Weight inFLIXimab 2020-0 2020- No Infuse [place] in sodium 01-15 into a Methodi chloride 10:18: 00:[address] 0.9% 250 mL 41 :00 catheter IVPB Every 2 months. inFLIXimab 2020-0 Yes 6 mg/kg [place] in sodium -29 every 6 Method[facility] chloride 00:00: weeks st 0.9% 250 mL 00 IVPB leflunomide 2019-0 2020- No [place] (ARAVA) 20 01-15 06-18 Methodi MG tablet 00:00: 00:00 st 00 :00 leflunomide 2020-0 2020- No 20mg QD Take 1 Jazmin ston (ARAVA) 20 2-20 08-25 tablet (20 Me thodi MG tablet 00:00: 00:00 mg total) st 00 :00 by mouth daily. ergocalcife Yes TAKE 1 [place] rol 1-20 CAPSULE BY Methodi (VITAMIN 00:00: MOUTH ONE st D2) 50,000 00 TIME PER unit WEEK capsule DOXYCYCLINE 2019- No 20mg Q.5D Take 20 mg [place] CALCIUM 08-22 by mouth 2 Metho di ORAL 09:07: 00:00 (two) st 20 :00 times a day. doxycycline 2018-08- No 20mg Q.5D Take 20 mg [place] (PERIOSTAT) 09-21 by mouth 2 M ethodi 20 MG 00:00: 00:00 (two) st tablet 00 :00 times a day. cholecalcif 2018-08- No 2000U QD Take 2,000 [place] kip, 09-09 11-21 Units by Methodi vitamin D3, 18:23: 00:[address] (VITAMIN 50 :00 daily. D3) 2,000 unit capsule capsule ergocalcife 2018-08- No [id number] Q7D Take 1 [place] rol 09-09 capsule Methodi (VITAMIN 00:00: 00:00 (50,000 st D2) 50,000 00 :00 Units unit total) by capsule mouth once a week. leflunomide 2018-08- No TAKE 1 Jazmin ston (ARAVA) 20 120 -20 TABLET BY Met hodi MG tablet 00:00: 00:[address] 00 :00 EVERY DAY tramadol 2018-08 Yes 50 mg = 1 Sam roberto hydrochlori 0-02 tab, PO, l de 50 MG 20:56: BID, X 15 Herm francisco j Oral Tablet 00 day, # 20 tab, 0 Refill(s) tramadol 2018-08 Yes 50 mg = 1 Sam roberto hydrochlori 0-02 tab, PO, l de 50 MG 20:56: BID, X 15 Herm francisco j Oral Tablet 00 day, # 20 tab, 0 Refill(s) doxycycline 2018-08 Yes 100 mg = 1 Memoria hyclate 100 0-02 tab, PO, l MG Oral 20:52: Q12H, X 10 Herm francisco j Tablet 00 day, # 20 tab, 0 Refill(s), Pharmacy: [facility] #[id number] doxycycline 2018-08 Yes 100 mg = 1 Memoria hyclate 100 0-02 tab, PO, l MG Oral 20:52: Q12H, X 10 Herm francisco j Tablet 00 day, # 20 tab, 0 Refill(s), Pharmacy: [id number] amoxicillin 2018-08 Yes 500 mg = 1 Memoria 500 mg oral 0-02 cap, PO, l capsule 20:14: TID, 0 Owen 00 Refill(s) infliximab 2018-08 Yes IV, 0 Memori a 10 MG/ML 0-02 Refill(s) l Injectable 20:14: Juno Solution 00 [Remicade] Doxycycline 2018-08 No 20 mg = 1 M emoria 20 MG Oral 0-02 tab, PO, l Tablet 20:14: Daily, # Owen 00 10 tab, 0 Refill(s) amoxicillin 2018-08 Yes 500 mg = 1 Memoria 500 mg oral 0-02 cap, PO, l capsule 20:14: TID, 0 Juno 00 Refill(s) infliximab 2018-08 Yes IV, 0 Memori a 10 MG/ML 0-02 Refill(s) l Injectable 20:14: Juno Solution 00 [Remicade] Doxycycline 2018-08 No 20 mg = 1 M emoria 20 MG Oral 0-02 tab, PO, l Tablet 20:14: Daily, # Juno 00 10 tab, 0 Refill(s) traMADol 2018-08- No 50mg Q.5D Take 50 mg [place] (ULTRAM) 50 0-03 by mouth 2 M ethodi mg tablet 00:00: 00:00 (two) st 00 :00 times a day as needed. leflunomide 2018- No TAKE 1 Jazmin ston (ARAVA) 20 -17 11-20 TABLET BY Met hodi MG tablet 00:00: 00:[address] 00 :00 EVERY DAY leflunomide 2018- No 20mg QD Take 1 Jazmin ston (ARAVA) 20 8- 09-17 tablet (20 Me thodi MG tablet 00:00: 00:00 mg total) st 00 :00 by mouth daily. amoxicillin 2018- No TAKE ONE [place] (AMOXIL) -24 -22 CAPSULE BY Meth darwin 500 MG 00:00: 00:[address] capsule 00 :00 TIMES A DAY FOR 7 DAYS folic acid 2019-0 2020- No 2mg QD Take 2 [place] (FOLVITE) 1 2-05 02-05 tablets (2 M ethodi MG tablet 00:00: 23:59 mg total) st 00 :00 by mouth daily. diclofenac 2018-0 Yes 75 mg = 1 Me moria sodium 75 8-21 tab, PO, l mg oral 19:06: BID, PRN Dylon n enteric 00 Pain, # 30 coated, tab, 2 delayed-rel Refill(s), ease tablet Pharmacy: [facility] #[id number] diclofenac 2018-0 Yes 75 mg = 1 Me moria sodium 75 8-21 tab, PO, l mg oral 19:06: BID, PRN Dylon n enteric 00 Pain, # 30 coated, tab, 2 delayed-rel Refill(s), ease tablet Pharmacy: [facility] #[id number] diclofenac 2018-0 Yes 75 mg = 1 Me moria sodium 75 7-11 tab, PO, l mg oral 16:38: BID, PRN Dylon n enteric 02 Pain, # 30 coated, tab, 0 delayed-rel Refill(s), ease tablet Pharmacy: [facility] #[id number] diclofenac 2018-0 Yes 75 mg = 1 Me moria sodium 75 7-11 tab, PO, l mg oral 16:38: BID, PRN Dylon n enteric 02 Pain, # 30 coated, tab, 0 delayed-rel Refill(s), ease tablet Pharmacy: [facility] #[id number] amLODIPine 2018-0 Yes 2.5 mg = 1 M emoria 2.5 mg oral 7-11 tab, PO, l tablet 16:38: Daily, # Juno 00 30 tab, 1 Refill(s), Pharmacy: [facility] #[id number] amLODIPine 2018-0 Yes 2.5 mg = 1 M emoria 2.5 mg oral 7-11 tab, PO, l tablet 16:38: Daily, # Owen 00 30 tab, 1 Refill(s), Pharmacy: [facility] #[id number] Vitamin D3 2018-0 Yes 2,000 Memori a 2000 intl 7-11 IntlUnit = l units oral 16:13: 1 tab, PO, H ermann tablet 00 Daily, 0 Refill(s) Vitamin D3 2018-0 Yes 2,000 Memori a 2000 intl 7-11 IntlUnit = l units oral 16:13: 1 tab, PO, H ermann tablet 00 Daily, 0 Refill(s) diclofenac 2018-0 Yes 75 mg = 1 Me moria sodium 75 6-11 tab, PO, l mg oral 16:11: BID, PRN Dylon n enteric 00 Pain, # 30 coated, tab, 0 delayed-rel Refill(s), ease tablet Pharmacy: [facility][id number] diclofenac 2018-0 Yes 75 mg = 1 Me moria sodium 75 6-11 tab, PO, l mg oral 16:11: BID, PRN Dylon n enteric 00 Pain, # 30 coated, tab, 0 delayed-rel Refill(s), ease tablet Pharmacy: [facility] #[id number] leflunomide 2018-0 Yes 10 mg = 1 M emoria 10 mg oral 6-11 tab, PO, l tablet 15:12: Daily, 0 Juno 00 Refill(s) leflunomide 2018-0 Yes 10 mg = 1 M emoria 10 mg oral 6-11 tab, PO, l tablet 15:12: Daily, 0 Owen 00 Refill(s) Ventolin 2018-0 Yes 2 puff, Memori a HFA 90 -11 INHALER, l mcg/inh 18:12: Q4H, PRN Dylon n inhalation 00 wheezing, aerosol coughing, with or adapter shortness of breath, # 18 gm, 1 Refill(s), Pharmacy: [facility] #[id number] Levofloxaci 2018-0 No 500 mg = 1 Memoria n 500 MG 1-11 tab, PO, l Oral Tablet 18:12: Q24H, X 10 Owen [Levaquin] 00 day, # 10 tab, 0 Refill(s), Pharmacy: [id number] Ventolin 2018-0 Yes 2 puff, Memori a HFA 90 -11 INHALER, l mcg/inh 18:12: Q4H, PRN Dylon n inhalation 00 wheezing, aerosol coughing, with or adapter shortness of breath, # 18 gm, 1 Refill(s), Pharmacy: [id number] Levofloxaci 2018-0 No 500 mg = 1 Memoria n 500 MG 1-11 tab, PO, l Oral Tablet 18:12: Q24H, X 10 Owen [Levaquin] 00 day, # 10 tab, 0 Refill(s), Pharmacy: [facility] #[id number] doxycycline 2016-08 Yes 100 mg = 1 [facility] hyclate 100 2-18 tab, PO, l MG Oral 20:23: Q12H, X 7 Kim nn Tablet 00 day, # 14 tab, 0 Refill(s), Pharmacy: [id number] benzonatate 2016-08 Yes 200 mg = 1 Memoria 200 MG Oral 2-18 cap, PO, l Capsule 20:23: TID, X 10 Kim nn [Tessalon] 00 day, # 30 cap, 0 Refill(s), [facility]acy: [id number] doxycycline 2016-08 Yes 100 mg = 1 [facility] hyclate 100 2-18 tab, PO, l MG Oral 20:23: Q12H, X 7 Kim nn Tablet 00 day, # 14 tab, 0 Refill(s), Pharmacy: [facility] #[id number] benzonatate 2016-08 Yes 200 mg = 1 [facility] 200 MG Oral 2-18 cap, PO, l Capsule 20:23: TID, X 10 Kim nn [Tessalon] 00 day, # 30 cap, 0 Refill(s), Pharmacy: [facility] #[id number] Acetaminoph Yes 1 - 2 tab, [facility]oria en 300 MG / 8-11 PO, Q4H, l Codeine 19:59: PRN Pain, Kim nn Phosphate 00 # 20 tab, 30 MG Oral 0 Tablet Refill(s) [Tylenol with Codeine #3] Acetaminoph Yes 1 - 2 tab, [facility]oria en 300 MG / 8-11 PO, Q4H, l Codeine 19:59: PRN Pain, Kim nn Phosphate 00 # 20 tab, 30 MG Oral 0 Tablet Refill(s) [Tylenol with Codeine #3] Morphine No Notes: [facility] - (Same l 19:25: as:MORPhin Juno 00 e Sulfate) Morphine No Notes: [facility] 03-30 (Same l 19:25: as:MORPhin Owen 00 e Sulfate) Sodium No 500 mL, [facility] Chloride 03-30 500 ml/hr, l 0.154 17:54: Infuse Owen MEQ/ML 00 Over: 1 Injectable hr, Route: Solution IV, 500, Drug form: INJ, ONCE, Priority: STAT, Dosing Weight 53.182 kg, Start date: 03/30/15 12:54:00, Duration: 1 doses or times, Stop date: 03/30/15 12:54:00 Ondansetron No Notes: Sam roberto 03-30 (Same as: l 17:54: Zochristophe) Juno 00 MEDICATION WASTE Product Size: 4 mg Product Wasted: ___ mg Morphine No Notes: [facility] 03-30 (Same l 17:54: as:MORPhin Owen 00 e Sulfate) Sodium No 500 mL, [facility] Chloride 03-30 500 ml/hr, l 0.154 17:54: Infuse Juno MEQ/ML 00 Over: 1 Injectable hr, Route: Solution IV, 500, Drug form: INJ, ONCE, Priority: STAT, Dosing Weight 53.182 kg, Start date: 03/30/15 12:54:00, Duration: 1 doses or times, Stop date: 03/30/15 12:54:00 Ondansetron No Notes: Sam roberto 03-30 (Same as: l 17:54: Edenilson) Juno MEDICATION WASTE Product Size: 4 mg Product Wasted: ___ mg Morphine No Notes: [facility] 8 (Same l 17:54: as:MORPhin Owen 00 e Sulfate) AMOXICILLIN Yes 1 tablet Me moria -POT 7-31 PO BID for l CLAVULANATE 00:00: 10 days Her grubbs 500-125 MG 00 TABS AMOXICILLIN Yes 1 tablet Me moria -POT 7-31 PO BID for l CLAVULANATE 00:00: 10 days Her grubbs 500-125 MG 00 TABS PREDNISONE No 1 tablet Mem oria 5 MG TABS 4-09 daily l 00:00: PREDNISONE Yes 1 tablet Mem oria 5 MG TABS 4-09 daily l 00:00: PREDNISONE No 1 tablet [facility] 5 MG TABS 4-09 daily l 00:00: PREDNISONE 2015-0 Yes 1 tablet [facility] 5 MG TABS 4-09 daily l 00:00: LEVOFLOXACI No 1 daily Mem oria N 500 MG 4-06 l TABS 00:00: LEVOFLOXACI No 1 daily Mem oria N 500 MG 4-06 l TABS 00:00: AMOXICILLIN No 1 tablet Me moria 500 MG CAPS 2-16 PO BID for l 00:00: 7 days AMOXICILLIN No 1 tablet Me moria 500 MG CAPS 2-16 PO BID for l 00:00: 7 days AMOXICILLIN No 1 tablet Me moria 500 MG CAPS 2-16 PO BID for l 00:00: 7 days AMOXICILLIN No 1 tablet Me moria 500 MG CAPS 2-16 PO BID for l 00:00: 7 days AUGMENTIN 2013- No 1 tablet 2 Me moria 500-125 MG 2-01 times a l TABS 00:00: day for 10 MONTELUKAST 2013-08 Yes 1 tablet Me moria SODIUM 10 2-01 at night l MG TABS 00:00: for congestion MONTELUKAST 2013-08 Yes 1 tablet Me moria SODIUM 10 2-01 at night l MG TABS 00:00: for congestion MONTELUKAST 2013-08 Yes 1 tablet Me moria SODIUM 10 2-01 at night l MG TABS 00:00: for congestion MONTELUKAST 2013- Yes 1 tablet Me moria SODIUM 10 2-01 at night l MG TABS 00:00: for congestion AUGMENTIN 2013- No 1 tablet 2 Me moria 500-125 MG 2-01 times a l TABS 00:00: day for 10 MONTELUKAST 2013-08 Yes 1 tablet Me moria SODIUM 10 2-01 at night l MG TABS 00:00: for congestion MONTELUKAST 2013-08 Yes 1 tablet Me moria SODIUM 10 2-01 at night l MG TABS 00:00: for congestion MONTELUKAST 2013-08 Yes 1 tablet Me moria SODIUM 10 2-01 at night l MG TABS 00:00: for congestion MONTELUKAST 2013-08 Yes 1 tablet Me moria SODIUM 10 2-01 at night l MG TABS 00:00: for congestion MELOXICAM 2013-08 Yes 1 BY MOUTH Me moria 7.5 MG TABS 1-07 DAILY l 00:00: MELOXICAM 2013-08 Yes 1 BY MOUTH Me moria 7.5 MG TABS 1-07 DAILY l 00:00: MELOXICAM 2013-08 Yes 1 BY MOUTH Me moria 7.5 MG TABS 1-07 DAILY l 00:00: MELOXICAM 2013-08 Yes 1 BY MOUTH Me moria 7.5 MG TABS 1-07 DAILY l 00:00: MELOXICAM 2013-08 Yes 1 BY MOUTH Me moria 7.5 MG TABS 1-07 DAILY l 00:00: MELOXICAM 2013-08 Yes 1 BY MOUTH Me moria 7.5 MG TABS 1-07 DAILY l 00:00: PREDNISONE 2013-08 No 1 tablet Mem oria 10 MG TABS 0-17 daily 7 l 00:00: days then /2 tab daily PREDNISONE 2013-08 No 1 tablet Mem [facility] 10 MG TABS 0-17 daily 7 l 00:00: days then /2 tab daily PREDNISONE 2013-08 No 1 tablet Mem [facility] 10 MG TABS 0-17 daily 7 l 00:00: days then 1/2 tab daily PREDNISONE 2013-08 No 1 tablet [facility] 10 MG TABS 0-17 daily 7 l 00:00: days then /2 tab daily PREDNISONE 2013-08 No 1 tablet [facility] 10 MG TABS 0-17 daily 7 l 00:00: days then 1/2 tab daily PREDNISONE 2013-08 No 1 tablet Mem [facility] 10 MG TABS 0-17 daily 7 l 00:00: days then /2 tab daily NABUMETONE Yes 1 tablet [facility] 500 MG TABS 5-15 twice l 00:00: daily NABUMETONE Yes 1 tablet [facility] 500 MG TABS 5-15 twice l 00:00: daily NABUMETONE Yes 1 tablet [facility] 500 MG TABS 5-15 twice l 00:00: daily NABUMETONE 2014-0 Yes 1 tablet [facility] 500 MG TABS 5-15 twice l 00:00: daily NABUMETONE 2013-0 Yes 1 tablet [facility] 500 MG TABS 5-15 twice l 00:00: daily NABUMETONE 2013-0 Yes 1 tablet [facility] 500 MG TABS 5-15 twice l 00:00: daily NABUMETONE 2013-0 Yes 1 tablet [facility] 500 MG TABS 5-15 twice l 00:00: daily NABUMETONE 2013-0 Yes 1 tablet [facility] 500 MG TABS 5-15 twice l 00:00: daily ZITHROMAX 2013-0 No 2 tablets [facility] TAB 250MG 4-28 today, l 00:00: then 1 tablet daily X 4 days ALAWAY 2013-0 Yes 1 drop [facility] 0.025 % 4-28 q12h prn l SOLN 00:00: ZITHROMAX 2013-0 No 2 tablets [facility] TAB 250MG 4-28 today, l 00:00: then 1 tablet daily X 4 days ALAWAY 2013-0 Yes 1 drop [facility] 0.025 % 4-28 q12h prn l SOLN 00:00: METHOTREXAT 2014-0 Yes 6 po Memori a E 2.5 MG 3-21 weekly l TABS 00:00: METHOTREXAT 2014-0 Yes 6 po Memori a E 2.5 MG 3-21 weekly l TABS 00:00: METHOTREXAT 2014-0 Yes 6 po Memori a E 2.5 MG 3-21 weekly l TABS 00:00: METHOTREXAT 2013-0 Yes 6 po [facility] a E 2.5 MG 3-21 weekly l TABS 00:00: FOLIC ACID 2013-0 Yes 1 PO daily M emoria 1 MG TABS 3-19 l 00:00: TERBINAFINE 2013-0 No 1 tablet Me moria HCL 250 MG 3-19 daily l TABS 00:00: FOLIC ACID 2013-0 Yes 1 PO daily M emoria 1 MG TABS 3-19 l 00:00: TERBINAFINE 2013-0 No 1 tablet Me moria HCL 250 MG 3-19 daily l TABS 00:00: FOLIC ACID 2013-0 Yes 1 PO daily M emoria 1 MG TABS 3-19 l 00:00: TERBINAFINE 2014-0 No 1 tablet Me moria HCL 250 MG 3-19 daily l TABS 00:00: FOLIC ACID 2014-0 Yes 1 PO daily M emoria 1 MG TABS 3-19 l 00:00: FOLIC ACID 2013-0 Yes 1 PO daily M emoria 1 MG TABS 3-19 l 00:00: TERBINAFINE 2013-0 No 1 tablet Me moria HCL 250 MG 3-19 daily l TABS 00:00: FOLIC ACID 2013-0 Yes 1 PO daily M emoria 1 MG TABS 3-19 l 00:00: TERBINAFINE 2013-0 No 1 tablet Me moria HCL 250 MG 3-19 daily l TABS 00:00: FOLIC ACID 2013-0 Yes 1 PO daily M emoria 1 MG TABS 3-19 l 00:00: TERBINAFINE 2013-0 No 1 tablet Me moria HCL 250 MG 3-19 daily l TABS 00:00: FOLIC ACID 2013-0 Yes 1 PO daily M emoria 1 MG TABS 3-19 l 00:00: PREDNISONE 0 No 3 tab PO Mem oria 10 MG TABS 5-22 QD x 3 l 00:00: days, then 2 tab PO QD x 3 days, then 1 tab PO QD PREDNISONE No 3 tab PO Mem oria 10 MG TABS 5-22 QD x 3 l 00:00: days, then 2 tab PO QD x 3 days, then 1 tab PO QD PREDNISONE No 3 tab PO [facility] 10 MG TABS 5-22 QD x 3 l 00:00: days, then 2 tab PO QD x 3 days, then 1 tab PO QD PREDNISONE No 3 tab PO Mem [facility]ria 10 MG TABS 5-22 QD x 3 l 00:00: days, then 2 tab PO QD x 3 days, then 1 tab PO QD PREDNISONE 2013-0 No 3 tab PO Mem [facility]ria 10 MG TABS 5-22 QD x 3 l 00:00: days, then 2 tab PO QD x 3 days, then 1 tab PO QD PREDNISONE 2012-0 No 3 tab PO Mem oria 10 MG TABS 5-22 QD x 3 l 00:00: days, then 2 tab PO QD x 3 days, then 1 tab PO QD PREDNISONE 2012-0 No 3 tab PO Mem oria 10 MG TABS 5-22 QD x 3 l 00:00: days, then Owen 00 2 tab PO QD x 3 days, then 1 tab PO QD PREDNISONE 2012-0 No 3 tab PO Mem oria 10 MG TABS 5-22 QD x 3 l 00:00: days, then 2 tab PO QD x 3 days, then 1 tab PO QD SILVASORB 2011-1 No apply [facility]oria GEL 2-19 daily to l 00:00: wound SILVASORB 2011-1 No apply [facility] GEL 2-19 daily to l 00:00: wound DOXEPIN HCL 2011-0 No 1 PO q.hs M emoria 25 MG CAPS 8-21 l 00:00: METHOTREXAT 2012-0 No 4 tablets M emoria E 2.5 MG 8-21 PO weekly l TABS 00:00: METHOTREXAT 2012-0 No 4 tablets M emoria E 2.5 MG 8-21 PO weekly l TABS 00:00: DOXEPIN HCL 2011-0 No 1 PO q.hs M emoria 25 MG CAPS 8-21 l 00:00: METHOTREXAT 2012-0 No 4 tablets M emoria E 2.5 MG 8-21 PO weekly l TABS 00:00: METHOTREXAT 2012-0 No 4 tablets M emoria E 2.5 MG 8-21 PO weekly l TABS 00:00: Immunizations Ordered Immunization Filled Immunization Date Status Commen ts Source Name Name PPD Test 2015-05-09 Completed [place] 00:00:00 [facility] Vital Signs Vital Name Observation Time Observation Value Comments Source Systolic blood 2020-03-26 12:04:16 96 mm[Hg] [facility] pressure Diastolic blood 2020-03-26 12:04:16 53 mm[Hg] [place] pressure Heart rate 2020-03-26 12:04:16 90 /min [place] [facility] Body temperature 2020-03-26 12:04:16 36.06 [place] Respiratory rate 2020-03-26 12:04:16 16 /min [place] Oxygen saturation in 2020-03-26 12:04:16 95 /min [place] [facility] Arterial blood by Pulse oximetry Body height 2020-03-26 09:30:00 147.3 cm [place] [facility] Body weight 2020-03-26 09:30:00 44.906 kg [place] [facility] BMI 2020-03-26 09:30:00 20.69 kg/m2 [place] [facility] Height 2020-02-19 21:17:00 144.78 cm [facility] Weight 2020-02-19 21:17:00 [facility] BMI Calculated 2020-02-19 21:17:00 [facility] al [facility] Systolic (mm Hg) 2019-05-21 20:05:00 Sam rial Juno Diastolic (mm Hg) 2019-05-21 20:05:00 Mem o[facility] Owen Heart Rate 2019-05-21 20:05:00 [facility] Temperature Oral (F) 2019-05-21 20:05:00 98.0 F [facility] Height 2019-05-21 20:05:00 144.78 cm [facility] Weight 2019-05-21 20:05:00 [facility] BMI Calculated 2019-05-21 20:05:00 [facility] Weight 2018-06-17 16:05:00 [facility] BMI Calculated 2018-06-17 16:05:00 [facility] Height 2018-06-17 16:05:00 144.78 cm [facility] Systolic (mm Hg) 2018-06-17 16:05:00 Sam rial Juno Diastolic (mm Hg) 2018-06-17 16:05:00 [facility] o[facility] Owen Heart Rate 2018-06-17 16:05:00 [facility] Temperature Oral (F) 2018-06-17 16:05:00 97.9 F [facility] Temperature Oral (F) 2018-04-09 18:47:00 98.2 F [facility] BMI Calculated 2018-04-09 18:47:00 [facility] Weight 2018-04-09 18:47:00 [facility] Height 2018-04-09 18:47:00 144.78 cm [facility] Heart Rate 2018-04-09 18:47:00 [facility] Systolic (mm Hg) 2018-04-09 18:47:00 Sam rial Owen Diastolic (mm Hg) 2018-04-09 18:47:00 [facility] o[facility] Owen Systolic (mm Hg) 2018-02-27 16:37:00 Sam rial Juno Diastolic (mm Hg) 2018-02-27 16:37:00 [facility] BMI Calculated 2018-02-27 16:09:00 [facility] Weight 2018-02-27 16:09:00 [facility] Temperature Oral (F) 2018-02-27 16:09:00 98.0 F [facility] Respitory Rate 2018-02-27 16:09:00 [facility]ori al Owen Heart Rate 2018-02-27 16:09:00 [facility] Height 2018-02-27 16:09:00 144.78 cm [facility] Systolic (mm Hg) 2018-02-27 16:09:00 Sam rial Juno Diastolic (mm Hg) 2018-02-27 16:09:00 [facility] o[facility] Owen Systolic (mm Hg) 2018-01-28 18:27:00 Sam rial Owen Diastolic (mm Hg) 2018-01-28 18:27:00 [facility] Weight 2018-01-28 15:08:00 [facility] BMI Calculated 2018-01-28 15:08:00 [facility] Owen Height 2018-01-28 15:08:00 144.78 cm [facility] Heart Rate 2018-01-28 15:08:00 [facility] Temperature Oral (F) 2018-01-28 15:08:00 98.1 F [facility] Systolic (mm Hg) 2018-01-28 15:08:00 Sam rial Juno Diastolic (mm Hg) 2018-01-28 15:08:00 [facility] Owen Weight 2017-08-30 17:29:00 [facility] BMI Calculated 2017-08-30 17:29:00 [facility] Height 2017-08-30 17:29:00 146.05 cm [facility] Systolic (mm Hg) 2017-08-30 17:29:00 Sam rial Juno Diastolic (mm Hg) 2017-08-30 17:29:00 [facility] o[facility] Jun[facility] Heart Rate 2017-08-30 17:29:00 [facility] Temperature Oral (F) 2017-08-30 17:29:00 99.3 F [facility] Weight 2017-08-06 19:56:00 [facility] BMI Calculated 2017-08-06 19:56:00 [facility] Respitory Rate 2017-08-06 19:56:00 [facility] al Owen Heart Rate 2017-08-06 19:56:00 [facility] Temperature Oral (F) 2017-08-06 19:56:00 98.1 F [facility] Height 2017-08-06 19:56:00 142.24 cm [facility] Systolic (mm Hg) 2017-08-06 19:56:00 Sam rial Juno Diastolic (mm Hg) 2017-08-06 19:56:00 Mem o[facility] Respitory Rate 2015-03-30 20:39:00 Memori al Owen Heart Rate 2015-03-30 20:39:00 [facility] Temperature Oral (F) 2015-03-30 20:39:00 98.7 F [facility] Systolic (mm Hg) 2015-03-30 20:39:00 Sam rial Juno Diastolic (mm Hg) 2015-03-30 20:39:00 Mem o[facility] Jun[facility] Respitory Rate 2015-03-30 19:18:00 [facility]ori al [facility] Heart Rate 2015-03-30 19:18:00 [facility] Systolic (mm Hg) 2015-03-30 19:18:00 Sam rial Juno Diastolic (mm Hg) 2015-03-30 19:18:00 [facility] o[facility] Owen Weight 2015-03-30 17:17:00 [facility] Systolic (mm Hg) 2015-03-30 17:17:00 Sam rial Juno Diastolic (mm Hg) 2015-03-30 17:17:00 Mem orial [facility]o Heart Rate 2015-03-30 17:17:00 [facility] Respitory Rate 2015-03-30 17:17:00 [facility] al Owen Temperature Oral (F) 2015-03-30 17:17:00 99.0 F [facility] Weight 2015-03-19 15:25:13 [facility] Systolic (mm Hg) 2015-03-19 15:25:13 Sam rial Owen Diastolic (mm Hg) 2015-03-19 15:25:13 Mem orial [facility]o Heart Rate 2015-03-19 15:25:13 [facility] Temperature Oral (F) 2015-03-19 15:25:13 97.9 F [facility] Respitory Rate 2015-03-19 15:25:13 [facility] Weight 2014-11-23 15:50:20 [facility] Temperature Oral (F) 2014-11-23 15:50:20 98.0 F [facility] Respitory Rate 2014-11-23 15:50:20 [facility] Heart Rate 2014-11-23 15:50:20 [facility] Systolic (mm Hg) 2014-11-23 15:50:20 Sam rial Owen Diastolic (mm Hg) 2014-11-23 15:50:20 [facility] o[facility] Owen Weight 2014-10-05 20:35:19 [facility] Temperature Oral (F) 2014-10-05 20:35:19 98.7 F [facility] Heart Rate 2014-10-05 20:35:19 [facility] Respitory Rate 2014-10-05 20:35:19 [facility] Systolic (mm Hg) 2014-10-05 20:35:19 Sam rial Owen Diastolic (mm Hg) 2014-10-05 20:35:19 [facility] Owen Weight 2014-09-08 19:49:41 [facility] Systolic (mm Hg) 2014-09-08 19:49:41 Sam rial [facility] Temperature Oral (F) 2014-09-08 19:49:41 99.0 F [facility] Respitory Rate 2014-09-08 19:49:41 [facility] Heart Rate 2014-09-08 19:49:41 [facility] Diastolic (mm Hg) 2014-09-08 19:49:41 [facility] Weight 2014-08-06 13:40:31 [facility] Temperature Oral (F) 2014-08-06 13:40:31 97.6 F [facility] Respitory Rate 2014-08-06 13:40:31 [facility] Heart Rate 2014-08-06 13:40:31 [facility] Systolic (mm Hg) 2014-08-06 13:40:31 Sam rial [facility]o Diastolic (mm Hg) 2014-08-06 13:40:31 [facility] Weight 2014-07-20 16:48:01 [facility] Temperature Oral (F) 2014-07-20 16:48:01 97.2 F [facility] Respitory Rate 2014-07-20 16:48:01 [facility] Owen Heart Rate 2014-07-20 16:48:01 [facility] Systolic (mm Hg) 2014-07-20 16:48:01 Sam rial Owen Diastolic (mm Hg) 2014-07-20 16:48:01 [facility] Weight 2014-06-05 15:59:21 [facility] Temperature Oral (F) 2014-06-05 15:59:21 97.8 F [facility] Respitory Rate 2014-06-05 15:59:21 [facility] Heart Rate 2014-06-05 15:59:21 [facility] Systolic (mm Hg) 2014-06-05 15:59:21 Sam rial Owen Diastolic (mm Hg) 2014-06-05 15:59:21 [facility] Weight 2014-02-24 20:13:05 [facility] Temperature Oral (F) 2014-02-24 20:13:05 97.5 F [facility] Respitory Rate 2014-02-24 20:13:05 [facility] Heart Rate 2014-02-24 20:13:05 [facility] Systolic (mm Hg) 2014-02-24 20:13:05 Sam rial Owen Diastolic (mm Hg) 2014-02-24 20:13:05 [facility] Weight 2013-12-15 15:56:40 [facility] Temperature Oral (F) 2013-12-15 15:56:40 98.3 F [facility] Heart Rate 2013-12-15 15:56:40 [facility] Systolic (mm Hg) 2013-12-15 15:56:40 Sam rial Owen Diastolic (mm Hg) 2013-12-15 15:56:40 [facility] Respitory Rate 2013-12-15 15:56:40 [facility] Weight 2013-11-05 18:47:11 [facility] Temperature Oral (F) 2013-11-05 18:47:11 97.8 F [facility] Heart Rate 2013-11-05 18:47:11 [facility] Systolic (mm Hg) 2013-11-05 18:47:11 Sam rial [facility] Diastolic (mm Hg) 2013-11-05 18:47:11 [facility] Respitory Rate 2013-11-05 18:47:11 [facility] Weight 2013-08-06 19:54:11 [facility] Temperature Oral (F) 2013-08-06 19:54:11 98.4 F [facility] Heart Rate 2013-08-06 19:54:11 [facility] Systolic (mm Hg) 2013-08-06 19:54:11 Sam rial [facility] Diastolic (mm Hg) 2013-08-06 19:54:11 [facility] Respitory Rate 2013-08-06 19:54:11 [facility] Weight 2013-05-20 14:43:01 [facility] Temperature Oral (F) 2013-05-20 14:43:01 97.8 F [facility] Heart Rate 2013-05-20 14:43:01 [facility] Systolic (mm Hg) 2013-05-20 14:43:01 Sam rial Owen Diastolic (mm Hg) 2013-05-20 14:43:01 [facility] Respitory Rate 2013-05-20 14:43:01 [facility] Weight 2013-01-08 15:21:01 [facility] Temperature Oral (F) 2013-01-08 15:21:01 98.9 F [facility] Heart Rate 2013-01-08 15:21:01 [facility] Systolic (mm Hg) 2013-01-08 15:21:01 Sam rial Owen Diastolic (mm Hg) 2013-01-08 15:21:01 [facility] Respitory Rate 2013-01-08 15:21:01 [facility] Weight 2012-12-17 15:06:11 [facility] Systolic (mm Hg) 2012-12-17 15:06:11 Sam [facility] Diastolic (mm Hg) 2012-12-17 15:06:11 [facility] Temperature Oral (F) 2012-12-17 15:06:11 97.4 F [facility] Heart Rate 2012-12-17 15:06:11 [facility] Respitory Rate 2012-12-17 15:06:11 [facility] Weight 2012-08-07 17:24:11 [facility] Temperature Oral (F) 2012-08-07 17:24:11 98.0 F [facility] Systolic (mm Hg) 2012-08-07 17:24:11 Sam [facility]o Diastolic (mm Hg) 2012-08-07 17:24:11 [facility] Heart Rate 2012-08-07 17:24:11 [facility] Respitory Rate 2012-08-07 17:24:11 [facility] Height 2012-03-19 14:23:51 [facility] Weight 2012-03-19 14:23:51 [facility] Temperature Oral (F) 2012-03-19 14:23:51 98.2 F [facility] Heart Rate 2012-03-19 14:23:51 [facility] Systolic (mm Hg) 2012-03-19 14:23:51 Sam [facility] Diastolic (mm Hg) 2012-03-19 14:23:51 [facility] Respitory Rate 2012-03-19 14:23:51 [facility] Procedures Procedure Date / Time Performing Source Performed Clinician XR CHEST 2 VW 2019-12-29 [facility] 11:38:30 QUANTIFERON-TB GOLD PLUS 2019-12-25 [facility] 13:47:00 QUANTIFERON-TB GOLD PLUS 2019-12-25 [facility] 13:47:00 HEPATITIS B CORE ANTIBODY 2019-12-25 [facility] n [facility] TOTAL 13:41:00 HEPATITIS C ANTIBODY 2019-12-25 Tye [facility] 13:41:00 HEPATITIS B SURFACE ANTIBODY 2019-12-25 Tye Hill ston [facility] 13:41:00 HEPATITIS B SURFACE ANTIGEN 2019-12-25 Tye [facility] ton [facility] 13:41:00 CBC WITH PLATELET AND 2019-10-09 Tye [facility] DIFFERENTIAL 14:58:00 COMPREHENSIVE METABOLIC PANEL 2019-10-09 Tye Hill [place] [facility] 14:58:00 SEDIMENTATION RATE 2019-10-09 Tye Hill [facility] 14:58:00 C-REACTIVE PROTEIN 2019-10-09 Tye [facility] 14:58:00 VITAMIN D 25 HYDROXY LEVEL 2019-07-09 [place] 14:41:00 CBC WITH PLATELET AND 2019-07-09 [facility] DIFFERENTIAL 14:41:00 COMPREHENSIVE METABOLIC PANEL 2019-07-09 T[facility] [place] [facility] 14:41:00 SEDIMENTATION RATE 2019-07-09 T[facility] 14:41:00 C-REACTIVE PROTEIN 2019-07-09 T[facility] dist 14:41:00 colonoscopy 2013-01-30 [facility] 21:09:02 ORIF - Open reduction and 2011-08-20 [facility] internal fixation of 06:00:00 fracture<sup>1</sup> Excision of lipoma of 2010-08-20 [facility] ermann subcutaneous tissue 00:00:00 Colonoscopy 2007-08-20 [facility] 06:00:00 Esophagoduodenostomy 2007-08-20 [facility] 06:00:00 Knee replacement<sup>2</sup> 2006-08-20 [facility] [place] 06:00:00 Hip replacement<sup>3</sup> 2004-08-20 Sam [facility] 06:00:00 MCPJ - Arthroplasty 1999-08-20 [facility] metacarpophalangeal joint of 00:00:00 finger Plan of Care Planned Activity Planned Date Details Comments Source Future Scheduled 2020-05-20 INFLUENZA VACCINE [place] Test 00:00:00 [code = INFLUENZA VACCINE] Future Scheduled 2019 65+ PNEUMOCOCCAL [place] [facility] Test 00:00:00 VACCINE (2 of 2 - PPSV23) [code = 65+ PNEUMOCOCCAL VACCINE (2 of 2 - PPSV23)] Future Scheduled 2004 BREAST CANCER [facility] thodist Test 00:00:00 SCREENING [code = BREAST CANCER SCREENING] Future Scheduled 2004 [facility] Test 00:00:00 [code = COLONOSCOPY SCREENING] Future Scheduled 2004 SHINGLES VACCINES (#1) [facility] [place] Test 00:00:00 [code = SHINGLES VACCINES (#1)] Future Scheduled 1975 Screening for [place] [facility]odist Test 00:00:00 malignant neoplasm of cervix (procedure) [code = 526049758] Encounters Start End Encounter Admission Attending Care Care Encounter Source Date/Time Date/Time Type Type Clinicians Facility Department ID 2020-04-15 2020-04-15 Outpatient [facility] [id number] [place] 00:00:00 00:00:00 LATIFA 018 Method i 2020-03-26 2020-03-26 Outpatient [facility] [id number] [place] 00:00:00 00:00:00 LATIFA 771 Method i 2020-03-11 2020-03-12 Outpatient [facility] [id number] 09:43:50 23:59:59 04 2020-03-11 2020-03-12 Outpatient [facility] [id number] 09:43:50 23:59:59 04 2020-03-11 2020-03-11 Outpatient Snow, [facility] [id number] 13:20:00 23:59:59 Jerecia 26 [place] 2020-03-11 2020-03-11 Outpatient Edy, [facility] [id number] 13:20:00 23:59:59 Jerecia 26 [place] 2020-02-19 2020-02-19 Outpatient Steve, [facility] [id number] 15:40:00 23:59:59 Brandy 25 2020-02-19 2020-02-19 Outpatient Wilson, [facility] [id number] 15:40:00 23:59:59 Brandy 25 2020-02-05 2020-02-05 Outpatient [facility] [id number] [place] 00:00:00 00:00:00 LATIFA 825 Method i 2020-01-16 2020-01-16 Outpatient [facility] [id number] [place] 00:00:00 00:00:00 LATIFA 902 Method i 2019-12-29 2019-12-29 Outpatient [facility] [id number] [place] 00:00:00 00:00:00 LATIFA 270 [facility] 2019-12-25 2019-12-25 Outpatient [facility] [id number] [place] 00:00:00 00:00:00 LATIFA 973 Method i 2019-11-14 2019-11-14 Outpatient [facility] [id number] [place] 00:00:00 00:00:00 LATIFA 901 Method i 2019-05-21 2019-05-21 Outpatient Edy, [facility] [id number] 15:20:00 23:59:59 Jerecia 24 [place] 2019-05-21 2019-05-21 Outpatient Snow, [facility] [id number] 15:20:00 23:59:59 Jerecia 24 [place] 2018-07-09 2018-07-09 Outpatient Snow, [facility] [id number] 10:00:00 10:00:00 Jerecia 22 [facility] 2018-07-09 2018-07-09 Outpatient Snow, [facility] [id number] 10:00:00 10:00:00 Jerecia 22 [facility] 2018-06-17 2018-06-17 Outpatient Jay Jya, [facility] [id number] 11:00:00 23:59:59 Art L 23 2018-06-17 2018-06-17 Outpatient Jay Jay, [facility] [id number] 11:00:00 23:59:59 Art L 23 2018-04-09 2018-04-09 Outpatient Jay Jay, [facility] [id number] 13:40:00 23:59:59 Art L 2018-04-09 2018-04-09 Outpatient Douglasmalorie, MG [facility] [id number] 13:40:00 23:59:59 Art L 2018-03-14 2018-03-15 Outpatient [facility] [id number] 09:25:00 23:59:59 2018-03-14 2018-03-15 Outpatient [facility] [id number] 09:25:00 23:59:59 03 2018-02-27 2018-02-27 Outpatient Snow, [facility] [id number] 11:20:00 23:59:59 Jerecia 20 [place] 2018-02-27 2018-02-27 Outpatient Edy, MG [facility] [id number] 11:20:00 23:59:59 Jerecia 20 [place] 2018-01-28 2018-01-28 Outpatient Edy, WILBERTMG MG [id number] 10:30:00 23:59:59 Jerecia 19 [place] 2018-01-28 2018-01-28 Outpatient Edy, MG MG [id number] 10:30:00 23:59:59 Jerecia 19 [place] 2017-08-30 2017-08-30 Outpatient Klawitter, MG MG [id number] 11:40:00 23:59:59 Art L 18 2017-08-30 2017-08-30 Outpatient Kladrelltter, MG [facility] [id number] 11:40:00 23:59:59 Art L 18 2017-08-06 2017-08-06 Outpatient Edy, MG MG [id number] 13:50:00 23:59:59 Jerecia 17 [place] 2017-08-06 2017-08-06 Outpatient Edy, MG MG [id number] 13:50:00 23:59:59 Jerecia 17 [place] 2015-08-27 2015-08-27 Outpatient Douglasawitter, 2.16.840. 2.16.840.1 . [id number] 10:31:00 23:59:00 Art L 1.954750. 059208.3.61 01 3.615.29 5.29 2015-08-27 2015-08-27 Outpatient Kldarelltter, 2.16.840. 2.16.840.1 . [id number] 10:31:00 23:59:00 Art L 1.718018. 818959.3.61 01 3.615.29 5.29 2015-03-30 2015-03-30 Outpatient Nacho TayL [facility] [id number] 12:15:00 15:43:00 [place] [address] 2015-03-30 2015-03-30 Outpatient Nacho Tay [facility] [id number] 12:15:00 15:43:00 Osmin 2014-12-04 2014-12-04 Outpatient SHAWN GoyalIE [id number] 13:24:00 23:59:00 Art L 00 2014-12-04 2014-12-04 Outpatient SHAWN Goyal [id number] 13:24:00 23:59:00 Art L 00 Results Test Description Test Time Test Comments Results Result Comments Source QuantiFERON-TB Gold Plus 2019-12-31 16:10:00 Test Item Value Reference Range Interpretation Comme nts QuantiFERON Incubation (test code = Incubation performed. 5936) Quantiferon TB gold plus (test code = Positive Negative A 73079-6) CRYSTAL (test code = CRYSTAL) Performed at: 01 - [address] [id number] Director: Jonn Bernardo MD, Phone: [phone] at: - [facility] CenterIukhxoz[address] [place] [address] [id number] Director: Joe Plaza MD, Phone: [phone] Lab Interpretation (test code = Abnormal 65103-9) [place] MethodistQu[facility]FERON-TB Gold Zzgu9689-71-68 16:10:00 Test Item Value Reference Range Interpretation Comments Quantiferon Comment The QuantiFERON -TB criteria (test Gold Plus res ult is code = 8251-1) determined by subtractingthe Nil value from [facility] TB antigen (Ag) tu be. The mitogen tubeserves as a control for the test. QuantiFERON TB1 Ag >10.00 IU/mL Value (test code = 40094-7) QuantiFERON TB2 Ag >10.00 IU/mL Value (test code = 5942) Quantiferon NIL 6.09 IU/mL value (test code = 97866-7) Quantiferon >10.00 IU/mL mitogen value (test code = 13326-6) CRYSTAL (test code = Performed at: 02 CRYSTAL) - [facility] Bmhjsug9[address] [id number] Director: Joe Plaza MD, Phone: [phone] [place] MethodistXR Chest 2 Na9044-66-45 11:41:28Hm Interface, Radiology Results 12/29/2019 11:44 AM CDTXR CHEST 2 VWCLINICAL INDICATION:Z79.899 Other half-way (current) drug therapy, R76.12 Nonspecific reaction to cell mediated immunity measurement of gamma interferon antigen response without active tuberculosis, Positive TB-screeningCOMPARISON: 03/07/2019IMPRESSION:Heart and mediastinal contours are within normal limits and without change.The lungs are stable with mild chronic interstitial changes and mild hyperexpansion, question COPD. There is no developing consolidation or effusion.There are no radiographic findings for active tuberculosis. Bones are demineralized with mild degenerative changes through the spine with advanced arthrosis of the shoulders. Osteolysis of the distal clavicles is present which may relate to systemic disease such as from hyperparathyroidism or rheumatoid arthritis.*[facility]-[id number] MethodistHepatitis B surface vvgapnw7592-19-91 10:09:00 Test Item Value Reference Range Interpretation Comments Hepatitis B surface Ag Negative Negative (test code = 5196-1) CRYSTAL (test code = CRYSTAL) Performed at: [address] [place] [address] [id number] Director: Jonn Bernardo MD, Phone: [phone] [place] MethodistHepatitis B surface nrumqfvo7872-13-96 10:09:00 Test Item Value Reference Range Interpretation Comments Hepatitis B Non Reactive N on surface Ab (test Reactive: code = 83169-4) Inconsistent with immunity, less than 10 mI U/mL Reactive: Consistent with immunity, greater than 9. 9 mIU/mL CRYSTAL (test code = Performed at: CRYSTAL) - [address] [id number] Director: Jonn Bernardo MD, Phone: [phone] [place] MethodistHepatitis B core antibody duidu4071-38-41 10:09:00 Test Item Value Reference Range Interpretation Comments Hepatitis B core total Negative Negative Ab (test code = 47397-2) CRYSTAL (test code = CRYSTAL) Performed at: [address] [place] [address] [id number] Director: Jonn Bernardo MD, Phone: [phone] [place] MethodistHepatitis C yiwaxurd6921-43-45 10:09:00 Test Item Value Reference Range Interpretation Comments Hepatitis C Ab 0.1 0.0- 0.9 s/co (test code = ratio 07174-2) Negative: < 0.8 Indetermi mattie: 0.8 - 0.9 Positive: > 0.9 The CDC recomme nds that a positive HCV antibody result be followed up wit h a HCV Nucleic Aci d Amplification t est (733132). CRYSTAL (test code = Performed at: CRYSTAL) - [facility] [address] [id number] Director: Jonn Bernardo MD, Phone: [phone] [place] MethodistC-reactive btqymkh8884-70-00 10:09:00 Test Item Value Reference Range Interpretation Comments CRP (test code = 1 mg/L 0-10 1987-5) CRYSTAL (test code = Performed at: ) [facility] [address] [id number] Director: Jonn Bernardo MD, Phone: [phone] [place] MethodistComprehensive metabolic wbzuq7476-73-67 06:09:00 Test Item Value Reference Range Interpretation Comments Glucose (test code = 91 mg/dL 65-99 2345-7) BUN (test code = 6 mg/dL 8-27 L 3094-0) Creatinine (test code 0.40 mg/dL 0.57-1 L = 2160-0) EGFR Non-Afr. 110 mL/min/1.73 >59 [place] (test code = 2775) EGFR 126 mL/min/1.73 >59 (test code = 2774) BUN/creatinine ratio 15 12-28 (test code = 3097-3) Sodium (test code = 142 mmol/L 366-778 0783-2) Potassium (test code 3.6 mmol/L 3.5-5.2 = 2823-3) Chloride (test code = 102 mmol/L 96-106 2075-0) CO2 (test code = 22 mmol/L 20-29 8-9) Calcium (test code = 8.9 mg/dL 8.7-10.3 91971-5) Protein (test code = 7.8 g/dL 6-8.5 2885-2) Albumin, S (test code 4.5 g/dL 3.8-4.8 = 1751-7) Please note reference interval change Globulin, total (test 3.3 g/dL 1.5-4.5 code = 80891-4) Albumin/globulin 1.4 1.2-2.2 ratio (test code = 1759-0) Total bilirubin (test 0.3 mg/dL 0-1.2 code = 1975-2) Alkaline phosphatase 121 39- 117 IU/L H (test code = 6768-6) AST (test code = 33 0- 40 IU/L 1920-8) ALT (test code = 35 0- 32 IU/L H 1742-6) CRYSTAL (test code = CRYSTAL) Performed at: 01 - [facility] [address] [id number] Director: Jonn Bernardo MD, Phone: [phone] Lab Interpretation Abnormal (test code = 19424-9) [facility] with platelet and xzapaawcadai3441-99-28 06:09:00 Test Item Value Reference Range Interpretation Comments WBC (test code = 6690-2) 4.5 3.4- 10.8 x10E3/uL RBC (test code = 789-8) 4.10 3.77- 5.28 x10E6/uL HGB (test code = 718-7) 11.6 g/dL 11.1-15.9 HCT (test code = 4544-3) 38.0 % 34-46.6 MCV (test code = 787-2) 93 fL 79-97 MCH (test code = 785-6) 28.3 pg 26.6-33 MCHC (test code = 786-4) 30.5 g/dL 31.5-35.7 L RDW (test code = 788-0) 14.9 % 11.7-15.4 Platelet count (test 200 150- 450 x10E3/uL code = 777-3) Neutrophils (test code = 48 % Not Estab. 770-8) Lymphocytes (test code = 35 % Not Estab. 736-9) Monocytes (test code = 10 % Not Estab. 5905-5) Eosinophils (test code = 6 % Not Estab. 713-8) Basophils (test code = 1 % Not Estab. 706-2) Neutrophils, absolute 2.1 1.4- 7.0 x10E3/uL (test code = 751-8) Lymphocytes, absolute 1.6 0.7- 3.1 x10E3/uL (test code = 731-0) Monocytes, absolute 0.5 0.1- 0.9 x10E3/uL (test code = 742-7) Eosinophils, absolute 0.3 0.0- 0.4 x10E3/uL (test code = 711-2) Basophils, absolute 0.1 0.0- 0.2 x10E3/uL (test code = 704-7) Immature granulocytes 0 % Not Estab. (test code = 65917-1) Immature grans (abs) 0.0 0.0- 0.1 x10E3/uL (test code = 57475-1) CRYSTAL (test code = CRYSTAL) Performed at: [facility] [id number] Director: Jonn Bernardo MD, Phone: [phone] Lab Interpretation (test Abnormal code = 96725-5) [place] MethodistSedimentation pftl2763-82-25 06:09:00 Test Item Value Reference Range Interpretation Comments Sedimentation rate (test 17 0- 40 mm/hr code = 4537-7) CRYSTAL (test code = CRYSTAL) Performed at: [facility] [id number] Director: Jonn Bernardo MD, Phone: [phone] [place] MethodistVitamin D 25 hydroxy cdkhf4962-12-94 06:09:00 Test Item Value Reference Range Interpretation Comments Vitamin D, 13.2 ng/mL 30-100 L Vitamin D 25-hydroxy (test deficiency has been code = 55367-0) defined by [facility] of[facility] Systemcine and an Endocrine Socie ty practice guidel ine as alevel of se rum 25-OH vitamin D less than 20 ng /mL (1,2).The Endoc rine Society went on to further define vitamin Dinsufficiency as a level between 2 1 and 29 ng/mL (2 ).1. IOM ([place] of [employer]). 2010 . Dietary referen ce intakes for rubens cium and D. [place] on [place]: The Natio Sellsy AcademMy [employer] Box [employer] .2. Alcon MF, Nic GASTELUM, Erwin conrad PENALOZA, et al. Evaluation, treatment, and prevention of vitamin D deficiency: an Endocrine Socie ty clinical practi ce guideline. JCEM . 2010; 96(7):1911-30. CRYSTAL (test code = Performed at: CRYSTAL) [facility] [id number] Director: Jonn Bernardo MD, Phone: [phone] Lab Interpretation Abnormal (test code = 47768-9) [place] MethodistCHEM DWVCL3121-50-92 18:16:0099[facility] HermannCHEM PANEL 2015-03-30 18:16:99762Limrkirb HermannCHEM FJZNT1603-39-10 18:16:008[facility] HermannCHEM QDXPG3509-27-41 18:16:000.6[facility] HermannCHEM ECLXV4033-13-74 18:16:06697Lxmklvrd HermannCHEM XPWHW9782-94-98 18:16:003.1[facility] HermannCHEM PTQWP7383-41-96 18:16:70263Lyghhaxy HermannCHEM BANYA1241-06-54 18:16:0021 [facility] HermannCHEM KUQMK1773-48-53 18:16:008.5[facility] HermannCHEM PANEL 2015-03-30 18:16:0016.1[facility] DzlanksDBFDLNVASS8496-44-88 18:16:0033.3[facility] NcqixjkUUYMMGPIVD9037-76-90 18:16:0016.8[facility] MwgqspjQCMFAKABUR9125-67-42 18:16:09114Xchmewtr VzvnjcaEEHGTKJVFN6770-07-60 18:16:008.2[facility] DJHZACXYYW6290-92-92 18:16:0034.7[facility] HdpkacwEBEWALNSOR6120-91-06 18:16:00 88.9[facility] CbupchnZZMQPSKFFM0486-35-76 18:16:00 Test Item Value Reference Range Interpretation Comments MCH (test code = MCH) 29.6 pg 27.0-31.0 Memorial ZszqsbhWWYBEQNVOD4140-88-45 18:16:003.90[facility] HermannHEMATOLOGY 2015-03-30 18:16:0011.5[facility] UttpebaJTBGNZZQPM5450-94-70 18:16:0012.2[facility] ShgtatdKOQUPUEYWC7421-57-65 18:16:000.0[facility] MunuidrFUSAWLGKWX0762-09-82 18:16:000.5[facility] PovszgeDNETTKTYCY0245-66-34 18:16:001+ *ABN*(03/30/15 1:16 PM)[facility] TdwuisfQKQYJPMUMW8071-69-78 18:16:000.0[facility] HermannHEMATOLOGY 2015-03-30 18:16:0092.1[facility] KjdcxzfVLSRERKAFT6452-51-83 18:16:003.8[facility] MclxqgnMDHAJANICD1471-60-53 18:16:004.0[facility] IwxdasxEBBYFFYCZN7438-15-91 18:16:000.0[facility] WppgaraOMPWSBYMHT6243-45-52 18:16:000.5[facility] WCFLBVNZZW2201-46-32 18:16:0011.2[facility] SvwdqpeOHAEVSURVO5317-13-68 18:16:00 0.1[facility] HermannURINE AND AQCRE5358-73-41 18:16:00Yellow *NA*(03/30/15 1:16 PM)[facility] AND VOAXR9729-08-71 18:16:00Clear (03/30/15 1:16 PM) [facility] AND IQQHZ4520-59-37 18:16:000.2[facility]annUR[facility] AND CKHWL5583-71-52 18:16:00Negative (03/30/15 1:16 PM)[facility] AND MJCRE2949-60-75 18:16:00Negative (03/30/15 1:16 PM)[facility] AND HQVMY3985-15-70 18:16:00Negative *NA*(03/30/15 1:16 PM)[facility] AND HFCZZ7399-58-52 18:16:00Negative (03/30/15 1:16 PM)[facility] AND ODXMY9126-32-24 18:16:00 Test Item Value Reference Range Interpretation Comments UA pH (test code = UA pH) 8.0 1 5.0-8.0 [facility] AND TESSM0036-59-25 18:16:00 Test Item Value Reference Range Interpretation Comments UA Spec Grav (test code = UA Spec 1.010 1 Grav) [facility] HermannCHEM SYCAX6210-21-08 18:16:0099[facility] HermannCHEM PANEL 2015-03-30 18:16:96276Tfnfzmwt HermannCHEM AKCJU8924-38-61 18:16:008[facility] HermannCHEM COZWC8149-61-47 18:16:000.6[facility] HermannCHEM VOUAV8565-34-51 18:16:29846Mwayxxxl HermannCHEM ZZAGP0946-98-11 18:16:003.1[facility] HermannCHEM ZQGVV7106-46-87 18:16:55048Afjfatvy HermannCHEM BQIYN4531-88-06 18:16:0021 [facility]annCHEM JUSDQ5082-05-42 18:16:008.5[facility] HermannCHEM PANEL 2015-03-30 18:16:0016.1[facility] IwiaplcXCRLQTSQWH5524-19-11 18:16:0033.3[facility] KhpjndeOXGLAAEGKV0288-68-56 18:16:0016.8[facility] ZlqutryLQEEQPZPAY9452-83-50 18:16:30388Gghhoasb VzlsnjeFIAKIREYLD3191-05-81 18:16:008.2[facility] BGEBQYDIEH5068-27-03 18:16:0034.7[facility] HifbrmsJBCRCDXBGE2091-83-13 18:16:00 88.9[facility] RzsrjayMJMINSKTYF9137-24-65 18:16:00 Test Item Value Reference Range Interpretation Comments MCH (test code = MCH) 29.6 pg 27.0-31.0 Memorial ZdmxqwjSTGOYUIWPT9151-05-85 18:16:003.90[facility] HermannHEMATOLOGY 2015-03-30 18:16:0011.5[facility] FpxzizkINWCPBCNWP3036-41-56 18:16:0012.2[facility] DstojwyIZVSIDSHEF2378-16-53 18:16:000.0[facility] YfqmelbJZHLUFMOZD1197-09-93 18:16:000.5[facility] PaqrbncGJRABMEJXL4808-07-61 18:16:001+ *ABN*(03/30/15 1:16 PM)[facility] KweehrrZXLSMCSMTB7448-23-25 18:16:000.0[facility] HermannHEMATOLOGY 2015-03-30 18:16:0092.1[facility] LhqbifiEYQIHBMHVD6117-18-65 18:16:003.8[facility] QocutxsNORWDDJCYV6655-66-52 18:16:004.0[facility] MoheykmLBBLMWKTUA5569-26-50 18:16:000.0[facility] YshbikuHBZPCHDMDC5181-61-65 18:16:000.5[facility] YQXPLADNHY4209-84-96 18:16:0011.2[facility] TllxtdtPIDQRZIVAS1547-83-72 18:16:00 0.1[facility]annURINE AND USWWA9791-17-64 18:16:00Yellow *NA*(03/30/15 1:16 PM)[facility] AND VPIZS4411-66-85 18:16:00Clear (03/30/15 1:16 PM) [facility] AND NRIYC7796-30-77 18:16:000.2[facility]annUR[facility] AND PDWUB8905-95-60 18:16:00Negative (03/30/15 1:16 PM)[facility] AND PZPBO8041-19-16 18:16:00Negative (03/30/15 1:16 PM)[facility] AND VSIMH8507-93-79 18:16:00Negative *NA*(03/30/15 1:16 PM)[facility] AND EAKVW5490-96-35 18:16:00Negative (03/30/15 1:16 PM)[facility] AND ILMYQ9823-62-54 18:16:00 Test Item Value Reference Range Interpretation Comments UA pH (test code = UA pH) 8.0 1 5.0-8.0 [facility] AND LPATS4308-78-79 18:16:00 Test Item Value Reference Range Interpretation Comments UA Spec Grav (test code = UA Spec 1.010 1 Grav) [facility] DlmpmtrXtvxbcdrv3566-15-21 16:59:80839Ebyjlijo HermannChemistry 2014-11-23 16:59:003.9[facility] OjclsfcDyyrbddtb9398-21-63 16:59:003.9[facility] EtqzwbgGngovzdyh2923-96-78 16:59:008.9[facility] JiqfxgrSbthbarwt1682-57-05 16:59:000.42[facility] WfksrlxJgppmtwel0901-58-30 16:59:008[facility] Chefcaeqs2599-41-82 16:59:0078[facility] HfrsldaVxozygvfb5757-50-95 16:59:0016 Memorial RisoweoHzpxsxyoz9629-04-72 16:59:0015[facility] HermannChemistry 2014-11-23 16:59:000.62[facility] AvfytcyIumotpahva1654-97-49 16:59:0011.7[facility] TbavlffTpnwmoojnt0000-25-31 16:59:0035.2[facility] EeqddegCbiqqiggpx3298-85-71 16:59:35787Akkunlio VbrhqqxXkuftwoxw4323-79-64 16:59:38014Wvwjeenc Owen Sotvzewyf5162-32-24 16:59:003.9[facility] HduakwqMvmyzjyqk3842-71-27 16:59:003.9 Memorial DscuivlCozckutoh0136-33-53 16:59:008.9[facility] HermannChemistry 2014-11-23 16:59:000.42[facility] DikygmbSrpyzhyzl3220-52-02 16:59:008[facility] MkihesjRsmzkrtbq2066-01-83 16:59:0078[facility] BdyonnyGsjuevhwz8472-12-99 16:59:0016[facility] BpiqsmyAyiaesacf8204-69-14 16:59:0015[facility] Bhdhzcrfg9962-02-71 16:59:000.62[facility] EkfojstHqzhgljeoe7614-96-53 16:59:00 11.7[facility] OvyvitzBmxufrrhpn4789-60-46 16:59:0035.2[facility] HermannHematology 2014-11-23 16:59:52247Vzfshsyh EdqvycdXhszxeklu3478-02-57 20:17:28612Mbfurtun PxobrobFguloalkq5775-20-33 20:17:003.4[facility] VxsafdoAkkwzyuio8765-51-72 20:17:008[facility] JfeqrzcGcpkvlrdz8034-08-39 20:17:000.53[facility] Fizoggrvt6830-81-71 20:17:0022[facility] DfvodhyCpojirlia5843-73-69 20:17:0020 [facility] HwjodeaOallkbqwc6046-75-68 20:17:53599Wnrmztyk HermannChemistry 2014-09-08 20:17:003.4[facility] HphenpcPxmprcnml9159-55-07 20:17:008[facility] VrucanxMocpctdwuh4117-70-76 20:17:0011.8[facility] UucxuyaEyyffzpvmi0808-54-23 20:17:0033.8[facility] BngxzniAdkowxquhp1663-89-79 20:17:0090[facility] Thffekucm5163-28-40 20:17:91157Tjqjheof LvegysfCssvoxdpo7039-47-62 20:17:003.4 Memorial QdzqofeGozcrxvgx3822-89-63 20:17:008[facility] QvytufkSswedlsbd0403-97-52 20:17:000.53[facility] LyqxhmjFavjmlktu0043-47-43 20:17:0022[facility] Skvrexyxb2420-86-75 20:17:0020[facility] KdupxfrOelkdhdkm4815-53-57 20:17:40882 Memorial BatmjhhZrgzuuvcj5482-17-86 20:17:003.4[facility] HermannChemistry 2014-09-08 20:17:008[facility] NfitljmBcpfzhcrur9962-71-88 20:17:0011.8[facility] BwwfrhoLbzbganorz9859-40-03 20:17:0033.8[facility] UcamhykHdvwanaxhn0173-15-95 20:17:0090[facility] EkjddtsCjctpshzl9476-17-74 16:30:004.0[facility] Ffluzmjbr1510-73-15 16:30:0089[facility] FltdhfmQkvuihpoc1116-68-74 16:30:0035 Memorial GzekmdhAdqwhlqkq1647-64-52 16:30:004.0[facility] HermannChemistry 2014-06-05 16:30:004.0[facility] XulwqtkNxzyasdou8919-29-20 16:30:0089[facility] IfmooviJqlpzmsml8046-48-94 16:30:0035[facility] FxmsvdwTygbuhgjv7794-01-01 16:30:0041[facility] LprdxiwUurmmfdvd6443-74-18 16:30:0089[facility] Ornlgbiio9388-20-41 16:30:0035[facility] GcjyomkPbxrjhpuzd7899-22-14 16:30:0012.2 [facility] YpdixjxWbuhwpoaac3918-07-51 16:30:0037.2[facility] HermannHematology 2014-06-05 16:30:0081[facility] SjzjpnoWcyofxuda1344-14-29 16:30:004.0[facility] DwmhwgsLbdlveoqu3839-03-09 16:30:0089[facility] HdymqgcZjmqlbfsh9353-00-34 16:30:0035[facility] SgrjvthRfjssuioo3801-39-97 16:30:004.0[facility] Xncfmvbbl7080-68-78 16:30:004.0[facility] SoibkdzHeapikexs4356-89-86 16:30:0089 [facility] WopgxhyPfxneobwk8925-99-58 16:30:0035[facility] HermannChemistry 2014-06-05 16:30:0041[facility] NxdsxorIfdpqceld3317-15-74 16:30:0089[facility] AdfffafHxkhyprlp5747-59-67 16:30:0035[facility] IrcdhoqUhnonywgjw3577-70-92 16:30:0012.2[facility] YobhvniUtzobnuptj9762-02-52 16:30:0037.2[facility] Uurfjxlwql6099-12-94 16:30:0081[facility] ExyppoxTxdmfnahw8380-44-14 20:55:56232 [facility] EmmwqlaTwxommxgt4454-89-22 20:55:003.9[facility] HermannChemistry 2014-02-24 20:55:009[facility] OyimrusVulpzirdo8057-29-95 20:55:90846Xuljfmed BnxwirgMbxefheaz4629-46-63 20:55:003.9[facility] PxjnxswChneexgeg0538-22-19 20:55:009[facility] WbhikszNfwickumu5757-46-15 20:55:69875Pfwswjac Owen Inxedwdoc7220-05-10 20:55:003.9[facility] FywqaylPohqbvwfo1461-42-47 20:55:009 [facility] LeupuncFxruvwzmd2826-70-61 20:55:95119Ljjfwbgh [facility]Chemistry 2014-02-24 20:55:003.9[facility] GsipwcxKotwfsiqt5747-76-74 20:55:009[facility] QfdprtyXttojxinu0161-81-31 20:55:000.45[facility] FeyauhoXkrmnierx0911-54-36 20:55:0018[facility] TldkeajLxcvtoadm1212-68-16 20:55:0020[facility] Ljeohhyzka1372-19-69 20:55:0012.2[facility] HqdhkziCczgvsdsag9720-22-19 20:55:00 34.8[facility] WumltbjNmjxwkcepg4892-38-45 20:55:0099[facility] HermannChemistry 2014-02-24 20:55:46793Xrzolxkc WatslakHhusfibam5968-36-23 20:55:003.9[facility] VgzcstmPpbbiryqh3744-07-44 20:55:009[facility] IjqlaxsVtjlngwcs7590-44-84 20:55:00 138[facility] AxtqopoIbzlyjojm3337-28-29 20:55:003.9[facility] HermannChemistry 2014-02-24 20:55:009[facility] XklyjciAqtqwguno7818-20-21 20:55:38829Stdfjyhh ZhtlgxpImlttkytx0315-46-25 20:55:003.9[facility] OjccnzoInytlqxxj0641-70-83 20:55:009[facility] BcmokpgMnqkcyziq9695-51-55 20:55:56388Quyetxdh Juno Guhfrxpjh0341-05-59 20:55:003.9[facility] AvpkesgEbxsaeghz3540-67-21 20:55:009 [facility] CrfseyxEgsjlroip4611-20-47 20:55:000.45[facility]annChemistry 2014-02-24 20:55:0018[facility] JynekhbUsnjpmbjp0241-15-37 20:55:0020[facility] SurwcmkCexsrvsqmq7805-54-00 20:55:0012.2[facility] NqhvhnaBowabrvjjn5002-05-35 20:55:0034.8[facility] QobyqgvTrkaqnwksj7668-27-52 20:55:0099[facility] Zzuxkxwlz5719-55-77 16:39:0025[facility] XyszferVqttyvmjf0562-79-10 16:39:0016 [facility] XqborooHczttjcvh2664-21-24 16:39:0025[facility] HermannChemistry 2013-12-15 16:39:0016[facility] GsmzjwhNwucjoyqa5356-18-07 16:39:0025[facility] UytbfwhJpnczgpec6351-66-44 16:39:0016[facility] GvnuepzEpoxrqdob2726-55-50 16:39:0025[facility] XwgyphzMxliwgpkc1492-89-10 16:39:0016[facility] Qdqvbqheu4186-61-43 16:39:0025[facility] JxxhmvkDxnlkfhmj8181-77-49 16:39:0016 [facility] GcwgdxpFaprcikxwd5082-24-29 16:39:0012.0[facility] HermannHematology 2013-12-15 16:39:0035.3[facility] NjnhhytVhczlvplbv2445-89-81 16:39:0096[facility] FyoifxuQnpwssbvl1642-78-24 16:39:0025[facility] OudtxkgOogfqjibx0762-37-97 16:39:0016[facility] CbhvbqrUgpodllsm5121-08-55 16:39:0025[facility] Ccsntlvaj9781-65-11 16:39:0016[facility] BkqyaaqVkvcuzlev2505-78-11 16:39:0025 [facility] AvhmmiuEoophjvvn9895-76-41 16:39:0016[facility] 2013-12-15 16:39:0025[facility] BwegdqxHjcjsgucp7494-71-14 16:39:0016[facility] UuxfyicPccaqavxa2179-28-08 16:39:0025[facility] FcnfysvFsrccupji0562-54-36 16:39:0016[facility] HhtxppkRuuinoturd5541-80-31 16:39:0012.0[facility] Mvlrcosabc1590-31-25 16:39:0035.3[facility] BdawanjZapxtndlak6160-96-10 16:39:0096 [facility] HbyquecNmwjorpnl2848-08-89 17:33:220.61[facility] 2011-09-18 17:33:220.61[facility] RyscpibUvbwzlohe7868-95-74 17:33:220.61[facility] JzmoiiyYrcjbhuxm1644-77-23 17:33:220.61[facility] FnwbzanNfpecoklr1328-28-94 17:33:220.61[facility] WdawhlwYbmfsdhvz9590-50-75 17:33:220.61[facility] Oejenwlxt2929-92-91 17:33:220.61[facility] IbykgnqBwlbzcedt9409-80-87 17:33:220.61 [facility] MlnddlrVoaqbdvto6435-03-08 17:33:220.61[facility] 2011-09-18 17:33:220.61[facility]
[2020-04-23] MEDS ORDERED: NA CHLORIDE 0.9% 500 ML ONE ×2 (08:08→10:59)
[2020-04-23 09:51] VITALS: BP 122/54; TEMP 98; O2SAT 96; BMI 21.4
[2020-04-23 14:11] LABS: Hematocrit 35.6 % (36.0-45.0)
== END 2020-04-23 14:05 | disposition home or self-care (01) ==
LOC: DS 07:13
PROVIDERS: ATTEND Family Medicine
DX: D50.9 Iron deficiency anemia, unspecified (principal)
CPT/HCPCS: 36415; 86900; 86850; 86901; 85018; 85014; 36430; P9016 ×2; J7040 ×2